=== PATIENT | male | born 1940 | race Hispanic/Latino ===

== ENCOUNTER → 2017-12-25 | Outpatient (CLI) | payer OTHER | END | disposition home or self-care (01) | LOC: OIH 10:57 | PROVIDERS: ATTEND Family Medicine | DX: M16.12 Unilateral primary osteoarthritis, left hip (principal) | CPT/HCPCS: 73502 ==

== ENCOUNTER 2018-12-24 05:47 | Day surgery (SDC) | payer OTHER ==
[~2018-12-24] VITALS: Ht 172.7 cm; Wt 69.8 kg
[~2018-12-24 05:47] MED LIST: APIX2.5T PO; ASPI-555 PO; ATOR-2 PO; LEVO50TA11 PO; METO-408 PO; OMEP20CA10 PO; SODIUM CHLORIDE 0.9% 1000ML 1,000 ML IV ONE; TAMS0.4C32 PO
[2018-12-24 06:35] VITALS: BP 116/54
[2018-12-24] MEDS ORDERED: LIDOCAINE HCL-MPF 2% 5ML VIAL ONE (07:36)
[2018-12-24] MEDS ORDERED: PROPOFOL 10 MG/ML 20ML VIAL IV ONE ×2 (07:36→07:57)
[2018-12-24] MEDS ORDERED: PHENYLEPHRINE HCL 10 MG/ML 1ML VIAL IV ONE (07:58)
[2018-12-24 08:06] VITALS: BP 95/47
[2018-12-24 08:11] VITALS: BP 112/55
[2018-12-24 08:16] VITALS: BP 109/53
[2018-12-24 08:38] VITALS: BP 135/61
--- NOTE | 2018-12-24 08:58 | NUR ---
PT TOLERATED PROCEDURE WELL, TO C/O OF PAIN , PT DOES STATE HE FEELS SLIGHT DIZZINESS, PT ABLE TO TOLERATE APPLE JUICE AND WATER. PT WAS ABLE TO MOVE FROM BED INTO CHAIR WITH SOME ASSISTANCE. PT ASSISTED TO DRESS UP , PT STABLE NO DISTRESS. POST CARE INSTRUCTIONS GIVEN TO PT AND , BOTH STATED UNDERSTANDING. PT INSTRUCTED TO START ELIQUIS TOMORROW. PT PLACED IN WHEELCHAIR, DRIVEN HOME BY .
== END 2018-12-24 08:58 | disposition home or self-care (01) ==
LOC: ENDO 05:47 → DAH 05:47 → ENDO 08:58
PROVIDERS: ATTEND Internal Medicine
DX: D12.3 Benign neoplasm of transverse colon (principal); D12.2 Benign neoplasm of ascending colon; K31.9 Disease of stomach and duodenum, unspecified; K29.50 Unspecified chronic gastritis without bleeding; K57.30 Diverticulosis of large intestine without perforation or abscess without bleeding; K64.0 First degree hemorrhoids; K22.8 Other specified diseases of esophagus; K31.89 Other diseases of stomach and duodenum; I10 Essential (primary) hypertension; Z86.73 Personal history of transient ischemic attack (TIA), and cerebral infarction without residual deficits; M19.90 Unspecified osteoarthritis, unspecified site; E11.9 Type 2 diabetes mellitus without complications; E78.00 Pure hypercholesterolemia, unspecified; I25.10 Atherosclerotic heart disease of native coronary artery without angina pectoris; Z95.0 Presence of cardiac pacemaker; Z98.890 Other specified postprocedural states; Z95.1 Presence of aortocoronary bypass graft; Z79.01 Long term (current) use of anticoagulants; Z79.899 Other long term (current) drug therapy
CPT/HCPCS: 43239; 45380; 45385; 82948 ×2; 88305; 93005; A4606; J2370; J2704 ×2; J3490; J7030

== ENCOUNTER → 2019-01-05 | Outpatient (CLI) | payer OTHER ==
[~2019-01-05] MED LIST changes: -SODIUM CHLORIDE 0.9% 1000ML 1,000 ML IV ONE
== END | disposition home or self-care (01) ==
LOC: OIH 09:58
PROVIDERS: ATTEND Family Medicine
DX: R63.4 Abnormal weight loss (principal); Z95.0 Presence of cardiac pacemaker
CPT/HCPCS: 71046

== ENCOUNTER → 2019-01-13 | Outpatient (CLI) | payer OTHER | END | disposition home or self-care (01) | LOC: RAH 10:00 | PROVIDERS: ATTEND Internal Medicine Gastroenterology | DX: R13.12 Dysphagia, oropharyngeal phase (principal); R63.3 Feeding difficulties; R63.4 Abnormal weight loss | CPT/HCPCS: 74230 ==

== ENCOUNTER → 2019-02-20 | Outpatient (CLI) | payer OTHER ==
[~2019-02-20] MED LIST changes: +IOHEXOL 350 MG/ML 100ML INFUS..BTL IV ONE
== END | disposition home or self-care (01) ==
LOC: RAH 09:23
PROVIDERS: ATTEND Internal Medicine Gastroenterology
DX: N28.1 Cyst of kidney, acquired (principal); I70.0 Atherosclerosis of aorta
CPT/HCPCS: 74178; Q9967

== ENCOUNTER → 2019-05-22 | Outpatient (CLI) | payer OTHER ==
[~2019-05-22] MED LIST changes: -IOHEXOL 350 MG/ML 100ML INFUS..BTL IV ONE; +OMEP-50 PO; -OMEP20CA10 PO
== END | disposition home or self-care (01) ==
LOC: SHCH 08:52
PROVIDERS: ATTEND Internal Medicine Cardiovascular Disease
DX: I08.3 Combined rheumatic disorders of mitral, aortic and tricuspid valves (principal); I11.9 Hypertensive heart disease without heart failure; I25.10 Atherosclerotic heart disease of native coronary artery without angina pectoris; Z95.0 Presence of cardiac pacemaker
CPT/HCPCS: 93306

== ENCOUNTER → 2019-06-17 | Outpatient (CLI) | payer OTHER ==
[~2019-06-17] MED LIST changes: +ALBUTEROL SULFATE 0.083% 2.5 MG/3 ML INH IH ONE
== END | disposition home or self-care (01) ==
LOC: RESP 08:19
PROVIDERS: ATTEND Internal Medicine Cardiovascular Disease
DX: J44.9 Chronic obstructive pulmonary disease, unspecified (principal); Z87.891 Personal history of nicotine dependence
CPT/HCPCS: 94060; 94727; 94729

== ENCOUNTER → 2020-01-13 | Outpatient (CLI) | payer OTHER ==
[~2020-01-13] MED LIST changes: -ALBUTEROL SULFATE 0.083% 2.5 MG/3 ML INH IH ONE; +FURO20TA4 PO; +GLIP5TAB11 PO; +METO25 PO; -OMEP-50 PO; +OMEP20CA12 PO
== END | disposition home or self-care (01) ==
LOC: OIH 12:50
PROVIDERS: ATTEND Family Medicine
DX: J90 Pleural effusion, not elsewhere classified (principal); J98.11 Atelectasis; M47.814 Spondylosis without myelopathy or radiculopathy, thoracic region; R04.2 Hemoptysis; Z95.0 Presence of cardiac pacemaker
CPT/HCPCS: 71046

== ENCOUNTER 2020-01-14 17:16 | Observation (INO) | payer OTHER ==
[~2020-01-14] VITALS: Ht 175.3 cm; Wt 74.2 kg
[~2020-01-14 17:16] MED LIST changes: -FURO20TA4 PO; -GLIP5TAB11 PO; -METO25 PO
[2020-01-14 17:49] LABS: BASOPHILS % (AUTO) 0.8 % (0.0-5.0); EOSINOPHILS % (AUTO) 1.3 % (0.0-8.0); HEMATOCRIT 30.6 % (42-54); LYMPHOCYTES % (AUTO) 27.5 % (21.0-51.0); MEAN CORPUSCULAR HEMOGLOBIN 30.1 pg (27.0-33.0); MEAN CORPUSCULAR VOLUME 91.3 fL (79-99); MONOCYTES % (AUTO) 12.4 % (3.0-13.0); NEUTROPHILS % (AUTO) 57.8 % (40.0-77.0); PLATELET COUNT (AUTO) 129 K/uL (130-400); RED BLOOD CELL COUNT(AUTO) 3.35 MIL/uL (4.50-6.20); RED CELL DISTRIBUTION WIDTH 13.9 % (11.0-15.5)
[2020-01-14] MEDS ORDERED: ASPIRIN 325 MG TABLET ONE (17:51)
[2020-01-14 17:56] LABS: INR 1.2 (0.85-1.15); PROTHROMBIN TIME 12.9 SEC (9.6-11.6)
[2020-01-14 18:03] LABS: CREATININE 1.6 mg/dL (0.5-1.5); POTASSIUM 3.9 mmol/L (3.5-5.1)
[2020-01-14 18:07] LABS: ALBUMIN 3.6 g/dL (3.5-5.0); BILIRUBIN,TOTAL 0.9 mg/dL (0.2-1.0); TOTAL PROTEIN, SERUM 7.5 g/dL (6.0-8.3)
[2020-01-14] MEDS ORDERED: SODIUM CHLORIDE 0.9% 1000ML 1,000 ML IV SCH (21:15)
[2020-01-14] MEDS ORDERED: PANTOPRAZOLE SODIUM 40 MG TABLET.DR ONE (21:26)
[2020-01-14 21:55] VITALS: BP 138/60
[2020-01-14] MEDS ORDERED: FURO20TA4 PO (22:42)
[2020-01-14] MEDS ORDERED: METO25 PO (22:47)
[2020-01-14] MEDS ORDERED: GLIP5TAB11 PO (22:48)
[2020-01-15] VITALS (11 sets, daily range): BP systolic 102–128; BP diastolic 53–74
[2020-01-15 04:01] LABS: HEMATOCRIT 28.4 % (42-54); MEAN CORPUSCULAR HEMOGLOBIN 29.6 pg (27.0-33.0); MEAN CORPUSCULAR HGB CONC 32.4 g/dL (32.0-36.0); MEAN CORPUSCULAR VOLUME 91.3 fL (79-99); PLATELET COUNT (AUTO) 105 K/uL (130-400); RED BLOOD CELL COUNT(AUTO) 3.11 MIL/uL (4.50-6.20); RED CELL DISTRIBUTION WIDTH 13.9 % (11.0-15.5); WHITE BLOOD COUNT (AUTO) 5.7 K/uL (4.8-10.8)
[2020-01-15 04:20] LABS: ALBUMIN 3.2 g/dL (3.5-5.0); CREATININE 1.5 mg/dL (0.5-1.5); TOTAL PROTEIN, SERUM 7.2 g/dL (6.0-8.3)
[2020-01-15] MEDS: PANTOPRAZOLE SODIUM 40 MG TABLET.DR PO SCH (09:00)
--- NOTE | 2020-01-15 11:52 | NUR ---
RD NOTIFICATION DX RIGHT PLEURAL EFFUSION. DIET: NPO AT THIS TIME. NO SIGNIFICANT WEIGHT CHANGES NOTED. LABS AND MEDS REVIEWED. SKIN IS INTACT. PT REPORTS DRINKING ENSURE WHEN HIS APPETITE IS POOR. BMI IS 24.[address] RECOMMENDS TO ADVANCE DIET TOLERATED WHEN MEDICALLY FEASIBLE TO HEART HEALTHY OFFER ENSURE WITH MEALS NEEDED MONITOR TOLERANCE TO PO AND PO INTAKE RD WILL CONTINUE TO MONITOR AND FOLLOW UP, THANK YOU. Addendum: 01/15/20 at [address] Amended: Links added.
--- NOTE | 2020-01-15 13:40 | NUR ---
U/S GUIDED RIGHT THORACENTESIS PROCEDURE PERFORMED BY DR. BROWNLEE. PUNCTURE SITE RIGHT POSTERIOR LATERAL BACK AND PATIENT TOLERATED PROCEDURE WELL. TOTAL REMOVED 1.5 LITERS OF CLOUDY PINK TINGED PLEURAL FLUID. END OF PROCEDURE AT 1350. CATHETER REMOVED AND DRESSING APPLIED. NO BLEEDING NOTED. POST CHEST X-RAY DONE AND READ BY DR. BROWNLEE. NO PNEUMOTHORAX SEEN. CALLED REPORT TO AMY ARMSTRONG. PATIENT TRANSPORTED TO 4TH FLOOR RM 405 VIA BED AT 1430. PT STABLE, AAO X3 WITH NO C/O PAIN.
[2020-01-15 16:14] LABS: APPEARANCE BODY FLUID CLOUDY (CLEAR); SPECIMENTYPE,BODY FLUID PLEURAL
[2020-01-15 16:15] LABS: COLOR,BODY FLUID AMBER (LT YELLOW)
[2020-01-15 16:16] LABS: BODY FLUID WBC 158 /cu. mm.; TOTAL VOLUME,BODY FLUID 1500 mL
[2020-01-15 16:22] LABS: BODY FLUID RBC 4100 /cu. mm.
[2020-01-15 17:00] LABS: BF LYMPHOCYTE 60 %; BF MESOTHELIAL 19 %; BF MONOCYTE 5 %
[2020-01-15] MEDS ORDERED: IPRATROPIUM/ALBUTEROL SULFATE 3 ML SOLUTION IH PRN (17:30)
--- NOTE | 2020-01-15 18:54 | NUR ---
INITIAL CM MET Mello SHIRLEY FOR DC PLANNING.,LIVES W SPOUSE IS AMBULATORY HAS A NEUBALIZER AND A WALKER THAT HE SUES SOMETIMES , DRIVES HAS PROVIDER THROUGHT HE VA BUT WAS A BIT UNCLEAR TO HOURS AND FRQUENCY. DCP IS HOME OR [facility] WILL PROVIDE TRANSPORT S/P THORA AND STILL SHORT OF BREATH Addendum: 01/15/20 at 1859 by KAVITHA ESPARZA RN CM Amended: Links added.
[2020-01-15] MEDS: METOPROLOL TARTRATE 25 MG TAB PO SCH (20:31)
[2020-01-15] MEDS ORDERED: TAMSULOSIN HCL 0.4 MG CAP.ER.24H PO SCH (21:00)
[2020-01-15] MEDS ORDERED: ATORVASTATIN CALCIUM 40 MG TABLET PO SCH (21:00)
[2020-01-16 04:00] VITALS: BP 106/61
[2020-01-16] MEDS ORDERED: GLIPIZIDE 5 MG TABLET PO SCH (08:00)
[2020-01-16 08:34] VITALS: BP 130/63
[2020-01-16] MEDS ORDERED: LEVOTHYROXINE 50 MCG TABLET PO SCH (09:00)
[2020-01-16] MEDS ORDERED: ASPIRIN 81 MG EC TAB PO SCH (09:00)
[2020-01-16] MEDS ORDERED: FUROSEMIDE 20 MG TABLET PO SCH (09:00)
[2020-01-16] MEDS: PANTOPRAZOLE SODIUM 40 MG TABLET.DR PO SCH (09:48)
[2020-01-16] MEDS: METOPROLOL TARTRATE 25 MG TAB PO SCH (09:49)
[2020-01-16 11:39] VITALS: BP 128/56
[2020-01-16 16:36] VITALS: BP 126/89
--- NOTE | 2020-01-16 18:00 | NUR ---
DISCHARGE PATIENT GIVEN DISCHARGE INSTRUCTIONS AND EDUCATION ON FOLLOW UP APPOINTMENTS WITH DR DELEON AND NEW SCHEDULED MEDICATION. PATIENT VERBALIZED UNDERSTANDING OF ALL EDUCATION GIVEN VIA TEACH BACK. NO CONCERNS VOICED. IV DISCONTINUED, CATHETER INTACT. NO DISTRESS NOTED UPON DISCHARGE. ALL BELONGINGS TAKEN WITH. PATIENT LEFT VIA WHEELCHAIR WEARING A SURGICAL MASK. SUE JESUS DAUGHTER, GIVEN DISCHARGE INSTRUCTIONS WELL. SUE VERBALIZED UNDERSTANDING OF ALL EDUCATION GIVEN VIA TEACH BACK. NO CONCERNS VOICED.
[2020-01-17] MEDS ORDERED: LEVOTHYROXINE 50 MCG TABLET PO SCH (06:30)
== END 2020-01-16 18:26 | disposition home or self-care (01) ==
LOC: EDH 17:16 → EDHIP 20:50 → 4BH 21:52
PROVIDERS: ADMIT Family Medicine; ATTEND Family Medicine
DX: J90 Pleural effusion, not elsewhere classified (principal); R04.2 Hemoptysis; E11.9 Type 2 diabetes mellitus without complications; E78.5 Hyperlipidemia, unspecified; I25.10 Atherosclerotic heart disease of native coronary artery without angina pectoris; I10 Essential (primary) hypertension; Z87.891 Personal history of nicotine dependence; Z95.0 Presence of cardiac pacemaker; Z95.1 Presence of aortocoronary bypass graft
CPT/HCPCS: 32555; 36415 ×2; 71045 ×3; 71250; 80053 ×2; 82550; 82948 ×6; 83615 ×2; 84155; 84157; 84484; 85025; 85027; 85610; 85730; 87071; 87205; 89051; 93005; 93306; 93356; 94640; 94664; 99285; A4215; G0378 ×6; J7030

== ENCOUNTER → 2020-02-05 | Outpatient (CLI) | payer OTHER ==
[~2020-02-05] MED LIST changes: +FURO20TA4 PO; +GLIP5TAB11 PO; -METO-408 PO; +METO25 PO; -OMEP20CA12 PO
== END ==
LOC: SHCH 09:37
PROVIDERS: ATTEND Internal Medicine Cardiovascular Disease
DX: T82.223A Leakage of biological heart valve graft, initial encounter (principal); I36.1 Nonrheumatic tricuspid (valve) insufficiency; I50.9 Heart failure, unspecified; Z98.890 Other specified postprocedural states; X58.XXXA Exposure to other specified factors, initial encounter
CPT/HCPCS: 93306

== ENCOUNTER → 2020-03-03 | Outpatient (CLI) | payer OTHER ==
[~2020-03-03] MED LIST changes: +ASCO500C18 PO; -ASPI-555 PO; +ASPI-556 PO; +BUME1TAB7 PO; +CHOL100046 PO; +CLOP75TA32 PO; +DEXA1TAB PO; +LOSA50TA64 PO; +METO-408 PO; +METO5TAB7 PO; +PANT40TA54 PO; +REGADENOSON 0.4 MG/5 ML PF SYG IVP SCH; +TORS10TA18 PO
== END | disposition home or self-care (01) ==
LOC: SHCH 08:20
PROVIDERS: ATTEND Internal Medicine Cardiovascular Disease
DX: I25.89 Other forms of chronic ischemic heart disease (principal); I50.20 Unspecified systolic (congestive) heart failure
CPT/HCPCS: 78452; 93017; 96374; A9500 ×2; J2785

== ENCOUNTER → 2020-03-09 | Outpatient (CLI) | payer OTHER ==
[~2020-03-09] MED LIST changes: -ASCO500C18 PO; +ASPI-555 PO; -ASPI-556 PO; -BUME1TAB7 PO; -CHOL100046 PO; -CLOP75TA32 PO; -DEXA1TAB PO; -LOSA50TA64 PO; -METO-408 PO; -METO5TAB7 PO; -PANT40TA54 PO; -REGADENOSON 0.4 MG/5 ML PF SYG IVP SCH; -TORS10TA18 PO
== END | disposition home or self-care (01) ==
LOC: OIH 10:15
PROVIDERS: ATTEND Internal Medicine
DX: J90 Pleural effusion, not elsewhere classified (principal); J44.9 Chronic obstructive pulmonary disease, unspecified; I50.9 Heart failure, unspecified; Z95.1 Presence of aortocoronary bypass graft
CPT/HCPCS: 71046

== ENCOUNTER → 2020-04-14 | Outpatient (CLI) | payer OTHER | END | disposition home or self-care (01) | LOC: OIH 09:12 | PROVIDERS: ATTEND Internal Medicine | DX: J90 Pleural effusion, not elsewhere classified (principal); I70.0 Atherosclerosis of aorta; R60.0 Localized edema ==

== ENCOUNTER 2020-04-20 11:54 | Inpatient (IN) | payer OTHER ==
[~2020-04-20] VITALS: Ht 175.3 cm; Wt 63.6 kg
[2020-04-20] MEDS ORDERED: OSELTAMIVIR PHOSPHATE 75 MG CAP ONE (14:23)
[2020-04-20] MEDS ORDERED: AZITHROMYCIN 250 MG TABLET PO ONE (14:23)
[2020-04-20] MEDS ORDERED: ONDANSETRON HCL 4 MG/2 ML VIAL IVP PRN (15:00)
[2020-04-20] MEDS ORDERED: HYDRALAZINE HCL 20 MG/ML VIAL IV PRN (15:00)
[2020-04-20] MEDS ORDERED: LABETALOL 20 MG/4 ML DISP.SYRIN IV PRN (15:00)
[2020-04-20] MEDS ORDERED: IPRATROPIUM/ALBUTEROL SULFATE 3 ML SOLUTION IH PRN (15:00)
[2020-04-20] MEDS ORDERED: ZOLPIDEM TARTRATE 5 MG TAB PO PRN (15:00)
[2020-04-20] MEDS ORDERED: LACTULOSE 20 GM/30 ML UDCUP PO PRN (15:00)
[2020-04-20] MEDS ORDERED: LOPERAMIDE HCL 2 MG CAP PO PRN (15:00)
[2020-04-20] MEDS ORDERED: LOPERAMIDE 1 MG/7.5 ML UDCUP PO PRN (15:00)
[2020-04-20] MEDS ORDERED: COMPOUND PO MISCELLANEOUS 1 EACH MISC MISC PRN (15:15)
[2020-04-20] MEDS ORDERED: LOPERAMIDE HCL 2 MG CAP PO ONE (20:58)
[2020-04-20] MEDS ORDERED: FAMOTIDINE/PF 20 MG/2 ML VIAL IV ONE (20:59)
[2020-04-20] MEDS ORDERED: OSELTAMIVIR PHOSPHATE 75 MG CAP PO SCH (21:00)
[2020-04-21] MEDS ORDERED: AZITHROMYCIN 500MG+NS 250ML 250 ML IV SCH (07:15)
[2020-04-21 08:05] VITALS: PULSE 59; RESP 24
[2020-04-21] MEDS ORDERED: ENOXAPARIN SODIUM 60 MG/0.6 ML SQ SCH (09:00)
[2020-04-21] MEDS ORDERED: FUROSEMIDE 10 MG/ML 4ML VIAL IV SCH (09:00)
[2020-04-21] MEDS ORDERED: ASPIRIN 81MG TAB.CHEW ONE (09:01)
[2020-04-21] MEDS ORDERED: ENOXAPARIN SODIUM 60 MG/0.6 ML SQ ONE (09:01)
[2020-04-21] MEDS ORDERED: FUROSEMIDE 10 MG/ML 2ML VIAL ONE (09:01)
[2020-04-21] MEDS ORDERED: OSELTAMIVIR PHOSPHATE 75 MG CAP ONE ×2 (09:02→20:24)
[2020-04-21] MEDS ORDERED: AZITHROMYCIN 500MG+NS 250ML 250 ML IV ONE (09:04)
[2020-04-21] MEDS ORDERED: POTASSIUM CHLORIDE 20 MEQ ERTAB PO ONE (10:08)
[2020-04-21] MEDS ORDERED: POTASSIUM CHLORIDE 20MEQ/100ML 100 ML IV PRN (10:15)
[2020-04-21] MEDS ORDERED: LIDOCAINE HCL-MPF 1% 2ML VIAL IV PRN (10:15)
[2020-04-21] MEDS ORDERED: POTASSIUM CHLORIDE 10% ELIXIR 20 MEQ/15 ML UDCUP PO PRN (10:15)
--- NOTE | 2020-04-21 15:52 | NUR ---
DCP: SNF at [facility] [address] [place] pt's daughter /JACOB Sr [phone]. Per daughter pt lives with his and son (alcoholic). currently admitted at [facility], for fall with concussion. Pt was seen by at [facility] and tested for covid, results pending. MD recommending SNF and at that time pt was agreeable. Daughter states pt is his own decision maker and may not agree when we ask him. Pt has cane, walker, shower chair ,O2 concentrator, needing portable tanks.No care or provider. Daughter gave her verbal consent for referral to be sent to [facility], but we will ask pt when he gets up to floor. CM to follow up with pt Addendum: 04/21/20 at 1557 by SERENE ESTRELLA Amended: Links added.
[2020-04-21] MEDS ORDERED: ACETAMINOPHEN 325 MG TAB ONE (20:23)
[2020-04-21] MEDS ORDERED: ZOLPIDEM TARTRATE 5 MG TAB ONE (20:25)
[2020-04-22] MEDS ORDERED: ACETAMINOPHEN 325 MG TAB PO PRN (01:15)
--- NOTE | 2020-04-22 07:41 | NUR ---
Pt. still in ER 04/20, 04/21, 04/22/2020. Awaiting for patient to be transferred to regular medical floor in order to be able to initiate skilled Physical Therapy evaluation [facility] Addendum: 04/22/20 at 0743 by LOYD MORRIS PT PT Amended: Links added.
[2020-04-22] MEDS ORDERED: OSELTAMIVIR PHOSPHATE 75 MG CAP ONE ×2 (08:41→20:05)
[2020-04-22] MEDS ORDERED: ASPIRIN 81MG TAB.CHEW ONE (08:42)
[2020-04-22] MEDS ORDERED: AZITHROMYCIN 500MG+NS 250ML 250 ML IV ONE (08:42)
[2020-04-22] MEDS ORDERED: FUROSEMIDE 10 MG/ML 4ML VIAL ONE (08:42)
[2020-04-22] MEDS ORDERED: ENOXAPARIN SODIUM 40 MG/0.4 ML SYRINGE SQ ONE (08:42)
[2020-04-22] MEDS ORDERED: PANTOPRAZOLE SODIUM 40 MG TABLET.DR ONE (08:43)
--- NOTE | 2020-04-22 08:52 | NUR ---
RE: RIGHT THORACENTESIS PATIENT SCHEDULED FOR RT THORACENTESIS DR Alan MENDOZA NOTIFIED. AND REVIEWED IMAGES. PATIENT SUSPECT WITH COVID-19 WITH RADIOLOGIC FINDINGS SUGGESTING COVID-19. PENDING COVID-19 TEST RESULTS. PROCEDURE CANCELED BY DR Alan MENDOZA AND RECOMMENDS PROCEDURE TO BE DONE BY COVID TEAM OR OFFSET MACHINE OPERATOR. AMY LANE NOTIFIED.
[2020-04-22] MEDS ORDERED: ZOLPIDEM TARTRATE 5 MG TAB ONE (20:05)
[2020-04-23] MEDS: PANTOPRAZOLE SODIUM 40 MG TABLET.DR PO SCH (09:00)
[2020-04-23] MEDS: ASPIRIN 81MG TAB.CHEW PO SCH (09:00)
[2020-04-23] MEDS: OSELTAMIVIR SUSP 15 MG/ML (6 CAPS/29ML) PO SCH ×2 (09:00→21:00)
[2020-04-23] MEDS ORDERED: FUROSEMIDE 10 MG/ML 4ML VIAL ONE (10:26)
[2020-04-23] MEDS ORDERED: ASPIRIN 81MG TAB.CHEW ONE (10:26)
[2020-04-23] MEDS ORDERED: ENOXAPARIN SODIUM 60 MG/0.6 ML SQ ONE (10:26)
[2020-04-23] MEDS ORDERED: OSELTAMIVIR PHOSPHATE 75 MG CAP ONE (10:27)
[2020-04-23] MEDS ORDERED: PANTOPRAZOLE SODIUM 40 MG TABLET.DR ONE (10:27)
[2020-04-23] MEDS ORDERED: AZITHROMYCIN 500MG+NS 250ML 250 ML IV ONE (11:01)
[2020-04-23] MEDS ORDERED: ENOXAPARIN SODIUM 80 MG/0.8 ML SQ SCH (14:15)
[2020-04-23 14:41] VITALS: BP 120/58; PULSE 83; RESP 20; TEMP 98
[2020-04-23 16:23] VITALS: BP 110/51; PULSE 64; RESP 16; TEMP 97.4
[2020-04-23] MEDS: CEFEPIME HCL 2 GM VIAL IVP SCH ×2 (17:56→20:51)
[2020-04-23] MEDS: FUROSEMIDE 10 MG/ML 4ML VIAL IV SCH ×2 (17:56→19:43)
[2020-04-23 19:32] VITALS: BP 114/53; PULSE 83; RESP 18; TEMP 97.4
[2020-04-23] MEDS: DOXYCYCLINE HYCLATE 100 MG TABLET PO SCH (19:44)
[2020-04-23] MEDS: POTASSIUM CHLORIDE 20 MEQ ERTAB PO PRN ×2 (19:46→22:31)
[2020-04-23] MEDS ORDERED: FUROSEMIDE 10 MG/ML 4ML VIAL IV SCH (21:00)
[2020-04-23] MEDS: PNEUMOCOCCAL VACCINE POLYVALENT 0.5 ML/VIAL [PPV] IM SCH (21:42)
[2020-04-23 23:58] VITALS: BP 103/49; PULSE 60; RESP 18; TEMP 96.2
[2020-04-24] MEDS: FUROSEMIDE 10 MG/ML 4ML VIAL IV SCH ×4 (02:29→20:34)
[2020-04-24 04:20] VITALS: BP 112/57; PULSE 60; TEMP 96.8
[2020-04-24] MEDS: CEFEPIME HCL 2 GM VIAL IVP SCH ×3 (05:22→20:35)
[2020-04-24 07:00] VITALS: BP 117/59; PULSE 86; RESP 32; TEMP 97
[2020-04-24] MEDS: DOXYCYCLINE HYCLATE 100 MG TABLET PO SCH ×2 (08:28→20:35)
[2020-04-24] MEDS: PANTOPRAZOLE SODIUM 40 MG TABLET.DR PO SCH (08:28)
[2020-04-24] MEDS: ASPIRIN 81MG TAB.CHEW PO SCH (08:28)
[2020-04-24] MEDS: POTASSIUM CHLORIDE 20 MEQ ERTAB PO PRN ×3 (08:29→17:03)
[2020-04-24] MEDS: OSELTAMIVIR SUSP 15 MG/ML (6 CAPS/29ML) PO SCH ×2 (08:29→20:35)
[2020-04-24 11:00] VITALS: BP 105/49; PULSE 61; RESP 28; TEMP 97
--- NOTE | 2020-04-24 12:53 | NUR ---
HELD TREATMENT FOR REGULAR PT ON SATURDAY. Addendum: 04/24/20 at 1253 by LOREE CHAVEZ, PT PT Amended: Links added.
[2020-04-24] MEDS: ENOXAPARIN SODIUM 60 MG/0.6 ML SQ SCH (14:23)
[2020-04-24 16:00] VITALS: BP 112/59; PULSE 64; RESP 28; TEMP 96
[2020-04-24 19:50] VITALS: BP 95/49; PULSE 57; RESP 18; TEMP 96.7
[2020-04-24] MEDS: ATORVASTATIN CALCIUM 40 MG TABLET PO SCH (20:35)
[2020-04-24] MEDS: METOPROLOL TARTRATE 25 MG TAB PO SCH (20:35)
[2020-04-24] MEDS: TAMSULOSIN HCL 0.4 MG CAP.ER.24H PO SCH (20:35)
[2020-04-24] MEDS: PNEUMOCOCCAL VACCINE POLYVALENT 0.5 ML/VIAL [PPV] IM SCH (21:00)
[2020-04-25] VITALS (8 sets, daily range): BP systolic 92–118; BP diastolic 45–60; PULSE 56–73; RESP 18–22; TEMP 95.5–98.2
--- NOTE | 2020-04-25 00:15 | NUR ---
STATUS Pt wants to get up to the bathroom,as per Star Mujica,pt c/o he felt dizzy.Explained to pt he's not allowed to get out of bed if he feels dizzy and weak.Pt offerred bedpan.He gets sob with exertion,placed back on 02 at 2lpm via Nc as he had removed it a while ago.Side rails up x 4,bed alarm on.Encouraged to call for assistance.
--- NOTE | 2020-04-25 01:15 | NUR ---
STATUS Pt resting quietly in bed,eyes closed.Respirations even and unlabored.
[2020-04-25] MEDS: FUROSEMIDE 10 MG/ML 4ML VIAL IV SCH ×4 (02:32→20:50)
[2020-04-25] MEDS: CEFEPIME HCL 2 GM VIAL IVP SCH ×3 (05:00→20:41)
[2020-04-25] MEDS: LEVOTHYROXINE 50 MCG TABLET PO SCH (05:58)
[2020-04-25] MEDS: POTASSIUM CHLORIDE 20 MEQ ERTAB PO PRN (06:17)
[2020-04-25] MEDS: GLIPIZIDE 5 MG TABLET PO SCH (08:00)
[2020-04-25] MEDS: LOSARTAN 50 MG TABLET PO SCH (09:00)
[2020-04-25] MEDS: METOPROLOL TARTRATE 25 MG TAB PO SCH ×2 (09:00→20:40)
[2020-04-25] MEDS: **HM**(Cholecalciferol (Vitamin D3) (Vitamin D3) 25 MCG PO SCH (09:00)
[2020-04-25] MEDS: PANTOPRAZOLE SODIUM 40 MG TABLET.DR PO SCH (09:19)
[2020-04-25] MEDS: DOXYCYCLINE HYCLATE 100 MG TABLET PO SCH ×2 (09:19→20:40)
[2020-04-25] MEDS: CLOPIDOGREL BISULFATE 75 MG TAB PO SCH (09:19)
[2020-04-25] MEDS: ASPIRIN 81MG TAB.CHEW PO SCH (09:20)
[2020-04-25] MEDS: OSELTAMIVIR SUSP 15 MG/ML (6 CAPS/29ML) PO SCH ×2 (09:23→20:55)
[2020-04-25] MEDS: ENOXAPARIN SODIUM 60 MG/0.6 ML SQ SCH (13:32)
--- NOTE | 2020-04-25 14:49 | NUR ---
RD NOTIFICATION Pt admitted with positive Influenza B. Pt with recent weight loss. Low BMI for age. +s/s Moderate fat/muscle loss. Tolerating Renal Dialysis diet order with no report of GI distress. Poor PO intake, decreased appetite. Recommend resume diet order Recommend Nepro BID RD to continue to monitor. Please notify as additional nutrition concerns arise. Thank you. Addendum: 04/25/20 at [address] Amended: Links added.
--- NOTE | 2020-04-25 15:03 | NUR ---
[facility] CONSULT [facility] RECOMMENDATIONS SUBMITTED BASED ON REPORT BY PATIENT'S NURSE DUE TO COVID-19 PROTOCOL; PICTURES NOT AVAILABLE IN CHART. Addendum: 04/25/20 at 1504 by ZEYAD ONEILL LVN LVN W Amended: Links added.
[2020-04-25] MEDS ORDERED: LORAZEPAM 2 MG/ML 1 ML VIAL ONE (17:28)
[2020-04-25] MEDS ORDERED: TRAMADOL HCL 50 MG TABLET PO SCH ×2 (17:45)
[2020-04-25] MEDS ORDERED: LORAZEPAM 2 MG/ML 1 ML VIAL IM PRN (17:45)
[2020-04-25] MEDS ORDERED: LORAZEPAM 2 MG/ML 1 ML VIAL IM SCH (17:45)
[2020-04-25] MEDS ORDERED: LORAZEPAM 2 MG/ML 1 ML VIAL IM ONE (17:45)
[2020-04-25] MEDS ORDERED: HYDROMORPHONE HCL 0.5 MG/0.5 ML ML IVP PRN (17:45)
--- NOTE | 2020-04-25 17:45 | NUR ---
AGITATION DREW EMBRYOLOGY PROFESSOR NOTIFIED OF PATIENTS AGITATION, PATIENT TRYING TO GET OUT OF BED AND SCREAMING AT STAFF. PATIENT STATES HE IS IN PAIN. EMBRYOLOGY PROFESSOR GAVE ORDERS FOR ABGs, ATIVAN AND PAIN MEDICATION AND 1:1 SITTER. ORDERS ENTERED INTO SYSTEM. ATIVAN 1MG GIVEN TO PATIENT.
[2020-04-25] MEDS ORDERED: TRAMADOL HCL 50 MG TABLET PO PRN ×2 (19:15)
[2020-04-25] MEDS: ATORVASTATIN CALCIUM 40 MG TABLET PO SCH (20:40)
[2020-04-25] MEDS: TAMSULOSIN HCL 0.4 MG CAP.ER.24H PO SCH (20:40)
[2020-04-25] MEDS: PNEUMOCOCCAL VACCINE POLYVALENT 0.5 ML/VIAL [PPV] IM SCH (21:00)
[2020-04-26] VITALS (9 sets, daily range): BP systolic 97–116; BP diastolic 51–60; PULSE 60–79; RESP 18–22; TEMP 97.5–98.3
[2020-04-26] MEDS: FUROSEMIDE 10 MG/ML 4ML VIAL IV SCH ×4 (03:11→20:24)
[2020-04-26] MEDS: LEVOTHYROXINE 50 MCG TABLET PO SCH (05:41)
[2020-04-26] MEDS: CEFEPIME HCL 2 GM VIAL IVP SCH ×3 (05:41→23:07)
[2020-04-26] MEDS: GLIPIZIDE 5 MG TABLET PO SCH (08:00)
[2020-04-26] MEDS: CLOPIDOGREL BISULFATE 75 MG TAB PO SCH ×2 (08:16→09:00)
[2020-04-26] MEDS: PANTOPRAZOLE SODIUM 40 MG TABLET.DR PO SCH ×2 (08:16→09:00)
[2020-04-26] MEDS: ASPIRIN 81MG TAB.CHEW PO SCH ×2 (08:16→09:00)
[2020-04-26] MEDS: OSELTAMIVIR SUSP 15 MG/ML (6 CAPS/29ML) PO SCH ×3 (08:16→20:23)
[2020-04-26] MEDS: DOXYCYCLINE HYCLATE 100 MG TABLET PO SCH ×2 (08:16→09:00)
[2020-04-26] MEDS: **HM**(Cholecalciferol (Vitamin D3) (Vitamin D3) 25 MCG PO SCH (08:17)
[2020-04-26] MEDS: LOSARTAN 50 MG TABLET PO SCH (08:19)
[2020-04-26] MEDS: METOPROLOL TARTRATE 25 MG TAB PO SCH ×2 (08:19→20:24)
--- NOTE | 2020-04-26 09:00 | NUR ---
STATUS PATIENT CURRENTLY SLEEPING. LAST DOSE OF ATIVAN WAS GIVEN AT 033. PATIENT IS AROUSABLE, BUT REFUSING TO COOPERATE TO TAKE MORNING MEDS AT THIS TIME. BP 116/43, OXYGEN SATURATIONS ON ROOM AIR 98%. WILL TRY AGAIN LATER TO GIVE MORNING MEDICATIONS.
--- NOTE | 2020-04-26 09:46 | NUR ---
RD UPDATE Notification for nutrition supplementation received. Diet order updated to add Nepro TID. RD to continue to monitor. Please notify as additional nutrition concerns arise. Thank you.
--- NOTE | 2020-04-26 11:15 | NUR ---
STATUS PATIENT AGAIN REFUSED TO TAKE MEDICATIONS. HE IS STILL VERY LETHARGIC, BUT AROUSABLE. ABLE TO VERBALIZE THAT HE DOES NOT WANT TO TAKE HIS MEDICATIONS. PRIMARY TEAM HAS NOT BEEN NOTIFIED THEY HAVE NOT ROUNDED YET. PATIENT'S VITAL SIGNS REMAIN STABLE, BP AND O2 SATURATIONS ON ROOM AIR ARE ACCEPTABLE.
--- NOTE | 2020-04-26 14:00 | NUR ---
STATUS PATIENT ASSESSED AGAIN. PATIENT IS REFUSING TO TAKE MEDICATIONS. HE IS ALERT AT THIS TIME, BUT CONTINUES TO REFUSE MEDICATIONS. DR. LUU MADE AWARE, HE STATED HE WILL BE HERE TO MAKE ROUNDS SHORTLY.
[2020-04-26] MEDS: ENOXAPARIN SODIUM 60 MG/0.6 ML SQ SCH (14:14)
--- NOTE | 2020-04-26 18:20 | NUR ---
MD ROUNDS DR. LUU AT BEDSIDE TO ASSESS PATIENT. HE STATES LETHARGY IS FROM ATIVAN AND HE WILL DISCONTINUE IT. HE WAS ALSO MADE AWARE THAT PATIENT DID NOT TAKE ANY OF HIS PILLS, HE REFUSED THEM. HE SAID HE WILL TRY TO SWITCH MANY MEDS TO IV HE CAN.
[2020-04-26] MEDS ORDERED: HALOPERIDOL LACTATE 5 MG/ML VIAL IM PRN (19:00)
[2020-04-26] MEDS: ATORVASTATIN CALCIUM 40 MG TABLET PO SCH (20:23)
[2020-04-26] MEDS: TAMSULOSIN HCL 0.4 MG CAP.ER.24H PO SCH (20:23)
[2020-04-27 04:05] VITALS: BP 83/57; PULSE 66; RESP 18; TEMP 97.6
[2020-04-27] MEDS: LEVOTHYROXINE 50 MCG TABLET PO SCH (06:10)
[2020-04-27] MEDS: FUROSEMIDE 10 MG/ML 4ML VIAL IV SCH ×2 (06:11→19:53)
[2020-04-27] MEDS: CEFEPIME HCL 2 GM VIAL IVP SCH ×2 (06:11→19:59)
[2020-04-27 07:44] VITALS: PULSE 66; RESP 18
[2020-04-27 08:42] VITALS: BP 109/60; PULSE 64; RESP 18; TEMP 97.6
[2020-04-27] MEDS: LOSARTAN 50 MG TABLET PO SCH (09:00)
[2020-04-27] MEDS: METOPROLOL TARTRATE 25 MG TAB PO SCH ×2 (09:00→19:53)
[2020-04-27] MEDS: **HM**(Cholecalciferol (Vitamin D3) (Vitamin D3) 25 MCG PO SCH (09:00)
[2020-04-27] MEDS: ASPIRIN 81MG TAB.CHEW PO SCH (09:01)
[2020-04-27] MEDS: PANTOPRAZOLE SODIUM 40 MG TABLET.DR PO SCH (09:01)
[2020-04-27] MEDS: OSELTAMIVIR SUSP 15 MG/ML (6 CAPS/29ML) PO SCH (09:02)
[2020-04-27] MEDS: CLOPIDOGREL BISULFATE 75 MG TAB PO SCH (09:02)
--- NOTE | 2020-04-27 12:00 | NUR ---
BENCHMARK ROUNDS SKY WAN SUPPORT SPECIALIST AT BEDSIDE FOR AN UPDATE ON PATIENT CONDITION. NOTIFIED HER THAT PATIENT CONTINUES TO BE CONFUSED/LETHARGIC/UNCOOPERATIVE AT TIMES. SHE WAS ALSO MADE AWARE THAT PATIENT HAS HAD POOR ORAL INTAKE AND IS REFUSING TO EAT. VITAL SIGNS AND OXYGENATION HAVE REMAINED STABLE. SHE GAVE ORDERS FOR MARINOL 2.5MG PO BID. ORDERS ENTERED INTO SYSTEM.
[2020-04-27 12:30] VITALS: BP 107/54; PULSE 61; RESP 18; TEMP 97.9
[2020-04-27] MEDS: COMPOUNDING VEHICLE NO 8 PO SCH ×2 (12:34→19:58)
[2020-04-27] MEDS: OSELTAMIVIR PHOSPHATE PO SCH ×2 (12:34→19:58)
[2020-04-27] MEDS: [UNRECOGNIZED DRUG - OTHER] PO SCH ×2 (12:34→19:58)
[2020-04-27 16:44] VITALS: BP 115/42; PULSE 60; RESP 18; TEMP 97.6
--- NOTE | 2020-04-27 18:03 | NUR ---
REFUSING TO EAT TRIED HELPING PATIENT EAT AT THIS TIME, BUT PATIENT REFUSED. PROCESSES CHEMICAL DESIGN ENGINEER AWARE.
--- NOTE | 2020-04-27 18:15 | NUR ---
FAMILY UPDATE PATIENT'S DAUGHTER, SUE, UPDATED ON PATIENT STATUS. SHE WAS NOTIFIED THAT PATIENT HAS BEEN REFUSING TO EAT. SHE WAS MADE AWARE THAT APPETITE STIMULATORS WERE ORDERED, BUT IF HE DOES NOT PROGRESS HE WILL MORE THAN LIKELY NEED SUPPLEMENTAL NUTRITION VIA FEEDING TUBE. SHE VERBALIZED UNDERSTANDING.
[2020-04-27] MEDS: ENOXAPARIN SODIUM 60 MG/0.6 ML SQ SCH (19:52)
[2020-04-27] MEDS: TAMSULOSIN HCL 0.4 MG CAP.ER.24H PO SCH (19:53)
[2020-04-27] MEDS: ATORVASTATIN CALCIUM 40 MG TABLET PO SCH (19:53)
[2020-04-27 20:00] VITALS: BP 112/65; PULSE 78; RESP 18; TEMP 97.8
[2020-04-27] MEDS ORDERED: DRONABINOL 2.5 MG CAP PO ONE (21:00)
[2020-04-28] VITALS: BP 103/56; PULSE 73; RESP 18; TEMP 97.4
[2020-04-28 03:53] VITALS: BP 105/59; PULSE 90; RESP 18; TEMP 97.6
[2020-04-28] MEDS: LEVOTHYROXINE 50 MCG TABLET PO SCH (05:55)
[2020-04-28] MEDS: CEFEPIME HCL 2 GM VIAL IVP SCH ×2 (06:00→14:37)
[2020-04-28] MEDS: FUROSEMIDE 10 MG/ML 4ML VIAL IV SCH (07:00)
[2020-04-28 08:37] VITALS: BP 101/58; PULSE 68; RESP 18; TEMP 97.2
[2020-04-28] MEDS: [UNRECOGNIZED DRUG - OTHER] PO SCH ×2 (09:00→21:00)
[2020-04-28] MEDS: COMPOUNDING VEHICLE NO 8 PO SCH ×2 (09:00→21:00)
[2020-04-28] MEDS: OSELTAMIVIR PHOSPHATE PO SCH ×2 (09:00→21:00)
[2020-04-28] MEDS: LOSARTAN 50 MG TABLET PO SCH (09:00)
[2020-04-28] MEDS: **HM**(Cholecalciferol (Vitamin D3) (Vitamin D3) 25 MCG PO SCH (09:00)
[2020-04-28] MEDS: METOPROLOL TARTRATE 25 MG TAB PO SCH (10:46)
[2020-04-28] MEDS: CLOPIDOGREL BISULFATE 75 MG TAB PO SCH (10:46)
[2020-04-28] MEDS: ASPIRIN 81MG TAB.CHEW PO SCH (10:46)
[2020-04-28] MEDS: PANTOPRAZOLE SODIUM 40 MG TABLET.DR PO SCH (10:47)
[2020-04-28 12:50] VITALS: BP 112/62; PULSE 72; RESP 18; TEMP 97.8
[2020-04-28] MEDS: ENOXAPARIN SODIUM 60 MG/0.6 ML SQ SCH (12:59)
--- NOTE | 2020-04-28 16:04 | NUR ---
DC PLAN CALLED DAUGHTER ZAYNAB PAYNE. WENT OVER THE DIFFERENT DC PLANS. DID BRING UP PEG TUBE MIGHT BE NEEDED IF PATIENT CONTINUES TO REFUSE TO EAT AND NG TUBE PLACED. EXPLAINED THAT NG IS NOT PERMANENT ANSWERED QUESTIONS. SAID NEEDED TO TALK TO SISTER. WILL CALL ME BACK. Addendum: 04/28/20 at 1607 by ELIUD MCLAUGHLIN RN CM Amended: Links added.
[2020-04-28 16:49] VITALS: BP 105/45; PULSE 60; RESP 20; TEMP 95.7
[2020-04-28 20:00] VITALS: BP 117/51; PULSE 60; RESP 19; TEMP 97.7
[2020-04-29] VITALS: BP 92/71; PULSE 62; RESP 19; TEMP 97.6
[2020-04-29 04:00] VITALS: BP 113/66; PULSE 67; RESP 19; TEMP 97.6
--- NOTE | 2020-04-29 05:00 | NUR ---
NG TUBE DC BY PATIENT ng tube placed in right nare discontinued by patient . patient refusing to take medications iv fluids still in place
[2020-04-29] MEDS: LEVOTHYROXINE 50 MCG TABLET PO SCH ×2 (05:28→06:30)
[2020-04-29] MEDS: CEFEPIME HCL 2 GM VIAL IVP SCH ×4 (05:28→21:32)
[2020-04-29] MEDS: LOSARTAN 50 MG TABLET PO SCH (09:00)
[2020-04-29] MEDS: OSELTAMIVIR PHOSPHATE PO SCH ×2 (09:00→20:59)
[2020-04-29] MEDS: ASPIRIN 81MG TAB.CHEW PO SCH (09:00)
[2020-04-29] MEDS: CLOPIDOGREL BISULFATE 75 MG TAB PO SCH (09:00)
[2020-04-29] MEDS: COMPOUNDING VEHICLE NO 8 PO SCH ×2 (09:00→20:59)
[2020-04-29] MEDS: FUROSEMIDE 10 MG/ML 4ML VIAL IV SCH ×2 (09:00)
[2020-04-29] MEDS: **HM**(Cholecalciferol (Vitamin D3) (Vitamin D3) 25 MCG PO SCH (09:00)
[2020-04-29] MEDS: [UNRECOGNIZED DRUG - OTHER] PO SCH ×2 (09:00→20:59)
[2020-04-29] MEDS: METOPROLOL TARTRATE 25 MG TAB PO SCH ×3 (09:00→20:48)
[2020-04-29] MEDS: PANTOPRAZOLE SODIUM 40 MG TABLET.DR PO SCH (09:00)
[2020-04-29] MEDS: DEXTROSE 5 % AND 0.9 % NACL 1,000 ML IV SCH ×3 (09:05→20:49)
--- NOTE | 2020-04-29 10:00 | NUR ---
PT CONTINUES TO BE UNCOOPERATIVE WITH PO NUTRITION AND MEDS, MULTIPLE FAILED ATTEMPTS WITH PO MEDS AND MOUTH CARE. PT WILL SWAT WITH HIS HANDS, TURN HEAD SIDE TO SIDE, AND TURN BODY SIDE TO SIDE. SPOKE WITH QA DEVELOPER REGARDING STATUS AND REMOVAL OF NG THIS MORNING PASSED ON FROM AUTO BODY MECHANIC APPRENTICE NURSE.
[2020-04-29 10:22] VITALS: BP 131/81; PULSE 67; RESP 18; TEMP 97.2
--- NOTE | 2020-04-29 11:41 | NUR ---
PT ACCIDENTALLY REMOVED PERIPHERAL IV. PLACED ANOTHER IV INTO RIGHT FOREARM. PT TOLERATED OKAY. WHILE PLACING IV PT VISIBLY BECAME NAUSEOUS AND BEGIN TO DRY HEAVE AND SPIT UP SPUTUM. EPISODE LASTED LESS THAN TWO MINUTES. UPON COMPLETION, BED WAS PLACED ON LOWEST POSITION AND THE HEAD OF THE BED WAS ELEVATED 45 DEGREES.
--- NOTE | 2020-04-29 13:49 | NUR ---
RD FOLLOW UP Pt with poor PO intake, refusal of oral nutrition and medication. Intermittent confusion as per EMR. Pt pulled NGT. Not in agreement with food or nutrition supplements. Pending RETAIL SERVICE SPECIALIST evaluation. Pt with significant weight loss. Recommend nursing home Altered means nutrition. RD to continue to monitor. Please notify as additional nutrition concerns arise. thank you.
--- NOTE | 2020-04-29 14:20 | NUR ---
DYSPHAGIA EVAL COMPLETED. +S/S IF ASPIRATION WITH SOLIDS AND THIN LIQUIDS. RECOMMEND PUREED, NECTAR-THICK LIQUIDS; PILLS CRUSHED WITH APPLESAUCE. RE-EVALUATION IS RECOMMENDED WHEN CURRENT STATUS IMPROVES. Addendum: 04/29/20 at 1424 by EVARISTO TIERNEY, SPT ST Amended: Links added.
[2020-04-29] MEDS: ENOXAPARIN SODIUM 60 MG/0.6 ML SQ SCH (14:28)
[2020-04-29 15:48] VITALS: BP 110/53; PULSE 60; RESP 20; TEMP 98.6
[2020-04-29 19:47] VITALS: PULSE 60; RESP 18
[2020-04-29] MEDS: ATORVASTATIN CALCIUM 40 MG TABLET PO SCH ×2 (20:48)
[2020-04-29] MEDS: TAMSULOSIN HCL 0.4 MG CAP.ER.24H PO SCH ×2 (20:49)
[2020-04-29 21:06] VITALS: BP 131/62; PULSE 60; RESP 20; TEMP 96.7
--- NOTE | 2020-04-29 21:30 | NUR ---
MED ADMINISTRATION ABLE TO TOLERATE PO MEDS,NO SIGN OF ASPIRATION.REPEATEDLY REFUSES APPLE SAUCE AND / OR GELATIN OFFERED . Addendum: 04/30/20 at 0453 by RAMON GUEVARA RN RN Amended: Links added.
[2020-04-30] VITALS (7 sets, daily range): BP systolic 108–154; BP diastolic 50–84; PULSE 61–68; RESP 13–20; TEMP 96.2–97.8
[2020-04-30] MEDS: CEFEPIME HCL 2 GM VIAL IVP SCH (05:34)
[2020-04-30] MEDS: LEVOTHYROXINE 50 MCG TABLET PO SCH (06:28)
[2020-04-30] MEDS: **HM**(Cholecalciferol (Vitamin D3) (Vitamin D3) 25 MCG PO SCH (09:00)
[2020-04-30] MEDS: PANTOPRAZOLE SODIUM 40 MG TABLET.DR PO SCH (09:00)
[2020-04-30] MEDS: ASPIRIN 81MG TAB.CHEW PO SCH (09:32)
[2020-04-30] MEDS: METOPROLOL TARTRATE 25 MG TAB PO SCH ×2 (09:32→20:13)
[2020-04-30] MEDS: CLOPIDOGREL BISULFATE 75 MG TAB PO SCH (09:33)
--- NOTE | 2020-04-30 10:59 | NUR ---
spoke with pts daughter requested update. pt uncooperative with breakfast this morning. pt did allow for med administration. IVF infusing. no s/s of distress or aspiration.
--- NOTE | 2020-04-30 19:05 | NUR ---
upon assessment pt bladdder noted slightly distended, denies pain upon palpation. encouraged pt to void per urinal, voided 100cc, bladder scanned pvr 167cc. Pt assisted with positioning for oral intake. 120cc nephro supplement given by nursing. pt tolerated okay.
[2020-04-30] MEDS: ATORVASTATIN CALCIUM 40 MG TABLET PO SCH (20:13)
[2020-04-30] MEDS: TAMSULOSIN HCL 0.4 MG CAP.ER.24H PO SCH (20:13)
[2020-05-01 01:13] VITALS: BP 107/61; PULSE 83; RESP 18; TEMP 97.6
[2020-05-01 04:16] VITALS: BP_SYST 133; BP_SYST 150; BP_DIAS 83; PULSE 72; RESP 20; TEMP 96.6
[2020-05-01] MEDS: DEXTROSE 5 % AND 0.9 % NACL 1,000 ML IV SCH (04:48)
[2020-05-01] MEDS: LEVOTHYROXINE 50 MCG TABLET PO SCH (05:35)
[2020-05-01] MEDS: POTASSIUM CHLORIDE 20 MEQ ERTAB PO PRN (05:35)
[2020-05-01] MEDS: ASPIRIN 81MG TAB.CHEW PO SCH (08:39)
[2020-05-01] MEDS: PANTOPRAZOLE SODIUM 40 MG TABLET.DR PO SCH (08:40)
[2020-05-01] MEDS: CLOPIDOGREL BISULFATE 75 MG TAB PO SCH (08:40)
[2020-05-01] MEDS: METOPROLOL TARTRATE 25 MG TAB PO SCH ×2 (08:40→20:55)
[2020-05-01] MEDS: **HM**(Cholecalciferol (Vitamin D3) (Vitamin D3) 25 MCG PO SCH (08:40)
[2020-05-01] MEDS: ENOXAPARIN SODIUM 40 MG/0.4 ML SYRINGE SQ SCH (08:41)
[2020-05-01 09:00] VITALS: BP 138/59; PULSE 71; RESP 18; TEMP 97.8
[2020-05-01 11:44] VITALS: BP 112/66; PULSE 61; RESP 18; TEMP 97.6
[2020-05-01 15:36] VITALS: BP 146/62; PULSE 61; RESP 18; TEMP 98
[2020-05-01] MEDS: TAMSULOSIN HCL 0.4 MG CAP.ER.24H PO SCH (20:55)
[2020-05-01] MEDS: ATORVASTATIN CALCIUM 40 MG TABLET PO SCH (20:55)
[2020-05-01 20:58] VITALS: BP 128/57; PULSE 66; RESP 18; TEMP 96.9
[2020-05-02] VITALS (7 sets, daily range): BP systolic 109–158; BP diastolic 44–93; PULSE 60–88; RESP 16–18; TEMP 96.9–98.7
[2020-05-02] MEDS: DEXTROSE 5 % AND 0.9 % NACL 1,000 ML IV SCH (04:03)
[2020-05-02] MEDS: LEVOTHYROXINE 50 MCG TABLET PO SCH (05:42)
[2020-05-02] MEDS: CLOPIDOGREL BISULFATE 75 MG TAB PO SCH (08:56)
[2020-05-02] MEDS: ASPIRIN 81MG TAB.CHEW PO SCH (08:56)
[2020-05-02] MEDS: METOPROLOL TARTRATE 25 MG TAB PO SCH ×2 (08:56→21:15)
[2020-05-02] MEDS: PANTOPRAZOLE SODIUM 40 MG TABLET.DR PO SCH (08:56)
[2020-05-02] MEDS: ENOXAPARIN SODIUM 40 MG/0.4 ML SYRINGE SQ SCH (08:57)
[2020-05-02] MEDS: **HM**(Cholecalciferol (Vitamin D3) (Vitamin D3) 25 MCG PO SCH (08:58)
[2020-05-02] MEDS: ASCORBIC ACID 500 MG TAB PO SCH (09:00)
[2020-05-02] MEDS: ZINC SULFATE 220 CAPSULE PO SCH (09:00)
[2020-05-02] MEDS ORDERED: ALBUTEROL SULFATE/IPRATROPIUM 103/18 MCG/PUFF 14.7 GM INHR IH PRN (10:00)
[2020-05-02] MEDS ORDERED: ALBUTEROL INHALER 90MCG/INH IH PRN (10:15)
--- NOTE | 2020-05-02 15:20 | NUR ---
PT ALERT TO PERSON AND PLACE, ABLE TO SPEAK CLEARLY AND FOLLOW COMMANDS. VSS, PT ABLE TO TOLERATE NUTRITIONAL SHAKE AND LIQUIDS WITHOUT ISSUE NO COUGH OR SHORTNESS OF BREATH NOTED OR REPORTED. UPDATED DAUGHTER WITH CURRENT PLAN, AWAITING PLACEMENT PER PAINTING INSTRUCTOR [facility]ACH VS [facility]. PT ASSISTED TO CALL FAMILY.
[2020-05-02] MEDS: ATORVASTATIN CALCIUM 40 MG TABLET PO SCH (21:15)
[2020-05-02] MEDS: TAMSULOSIN HCL 0.4 MG CAP.ER.24H PO SCH (21:15)
[2020-05-03 04:32] VITALS: BP 106/66; PULSE 60; RESP 18; TEMP 98
[2020-05-03] MEDS: LEVOTHYROXINE 50 MCG TABLET PO SCH (06:26)
[2020-05-03 08:07] VITALS: BP 112/61; PULSE 70; RESP 18; TEMP 97.8
[2020-05-03] MEDS: PANTOPRAZOLE SODIUM 40 MG TABLET.DR PO SCH (08:17)
[2020-05-03] MEDS: ASCORBIC ACID 500 MG TAB PO SCH (08:17)
[2020-05-03] MEDS: ASPIRIN 81MG TAB.CHEW PO SCH (08:17)
[2020-05-03] MEDS: METOPROLOL TARTRATE 25 MG TAB PO SCH ×2 (08:17→20:46)
[2020-05-03] MEDS: ENOXAPARIN SODIUM 40 MG/0.4 ML SYRINGE SQ SCH (08:18)
[2020-05-03] MEDS: CLOPIDOGREL BISULFATE 75 MG TAB PO SCH (08:18)
[2020-05-03] MEDS: **HM**(Cholecalciferol (Vitamin D3) (Vitamin D3) 25 MCG PO SCH (08:19)
[2020-05-03] MEDS: FUROSEMIDE 20 MG TABLET PO SCH (08:19)
[2020-05-03] MEDS: ZINC SULFATE 220 CAPSULE PO SCH (08:29)
[2020-05-03] MEDS: POTASSIUM CHLORIDE 20 MEQ ERTAB PO PRN ×3 (08:29→17:12)
--- NOTE | 2020-05-03 10:44 | NUR ---
FOLLOW UP COMPLETED. Pt WITH IMPROVED P.O. INTAKE IN THE LAST 3 DAYS. Pt ABLE TO INTAKE LIQUIDS AND SHAKES EFFICIENTLY WITH NO OVERT S/S OF ASPIRATION. Pt WITH LOW P.O. OF PUREED FOODS AT THIS TIME. RECOMMEND CONTINUED P.O. DIET OF PUREED, NECTAR-THICK LIQUIDS AND CRUSHED PILLS. Addendum: 05/03/20 at 1046 by EVARISTO TIERNEY [facility] Amended: Links added.
[2020-05-03 12:01] VITALS: BP 115/48; PULSE 67; RESP 17; TEMP 97.2
--- NOTE | 2020-05-03 14:26 | NUR ---
RD FOLLOW UP Pt seen by Diet modified to LAILA Chase. Improved PO intake. Nutritional supplemental shake in place. Pt positive COVID-19. BNP 1190. Vitamin C in place. LBM 04/24/20 as per EMR. Recommend continue current diet order Recommend laxative/stool softener as medically feasible RD to continue to monitor. Please notify as additional nutrition concerns arise. Thank you.
[2020-05-03 19:43] VITALS: BP 118/64; PULSE 60; RESP 18; TEMP 98.4
[2020-05-03] MEDS: TAMSULOSIN HCL 0.4 MG CAP.ER.24H PO SCH (20:45)
[2020-05-03] MEDS: ATORVASTATIN CALCIUM 40 MG TABLET PO SCH (20:45)
[2020-05-03 23:17] VITALS: BP 114/51; PULSE 62; RESP 18; TEMP 98.4
[2020-05-04 03:58] VITALS: BP 103/62; PULSE 60; RESP 18; TEMP 98
[2020-05-04] MEDS: LEVOTHYROXINE 50 MCG TABLET PO SCH (06:32)
[2020-05-04 08:30] VITALS: BP 139/66; PULSE 61; RESP 16; TEMP 97.5
[2020-05-04] MEDS: **HM**(Cholecalciferol (Vitamin D3) (Vitamin D3) 25 MCG PO SCH (09:00)
[2020-05-04] MEDS: PANTOPRAZOLE SODIUM 40 MG TABLET.DR PO SCH (09:02)
[2020-05-04] MEDS: ASPIRIN 81MG TAB.CHEW PO SCH (09:02)
[2020-05-04] MEDS: ZINC SULFATE 220 CAPSULE PO SCH (09:02)
[2020-05-04] MEDS: CLOPIDOGREL BISULFATE 75 MG TAB PO SCH (09:02)
[2020-05-04] MEDS: FUROSEMIDE 20 MG TABLET PO SCH (09:02)
[2020-05-04] MEDS: ENOXAPARIN SODIUM 40 MG/0.4 ML SYRINGE SQ SCH (09:03)
[2020-05-04] MEDS: METOPROLOL TARTRATE 25 MG TAB PO SCH ×2 (09:04→19:57)
--- NOTE | 2020-05-04 10:11 | NUR ---
FOLLOW UP COMPLETED. Pt CURRENTLY HAS IMPROVED HIS P.O. INTAKE. Pt PREFERS SHAKES/DRINKS (SUPPLEMENTS). ROCKET MOTOR MECHANIC COORDINATED WITH NILAM ESTEVEZ. IMPROVED MENTAL STATUS AT THIS TIME. RECOMMEND CONTINUED PUREED, NECTAR-THICK LIQUIDS; PILLS CRUSHED WITH APPLESAUCE. DIET UPGRADE IS NOT RECOMMENDED AT THIS TIME. Addendum: 05/04/20 at 1021 by EVARISTO TIERNEY, [facility] ST Amended: Links added.
[2020-05-04] MEDS: ASCORBIC ACID 500 MG TAB PO SCH (10:39)
[2020-05-04 11:00] VITALS: BP 132/98; PULSE 90; RESP 18; TEMP 98.9
--- NOTE | 2020-05-04 15:03 | NUR ---
DC PLAN PATIENT ACCEPTED TO [facility] TO DC IN AM. CAN ONLY ADMIT ONE PATIENT AT A TIME WITH COVID. Addendum: 05/04/20 at 1504 by ELIUD MCLAUGHLIN RN CM Amended: Links added.
[2020-05-04 16:00] VITALS: BP 138/78; PULSE 60; RESP 17; TEMP 97.9
--- NOTE | 2020-05-04 18:55 | NUR ---
1400 CALLED TO PT'S ROOM, PT FOUND NEXT TO THE BED ON BOTH KNEES ASSISTED TO BED WITH RAIL CAR WELDER. PT DENIES PAIN AND DISCOMFORT SKIN INTACT, NO VISIBLE INJURIES. SPOKE WITH CONCRETE WORKER NOTIFIED OF PT STATUS, NEW ORDER FOR CT HEAD. PT'S VITALS STABLE. NOTIFIED FAMILY AND CHARGE NURSE OF FALL. EDUCATED PT TO CALL FOR ASSISTANCE, PT ABLE TO DEMONSTRATE USE OF CALL BUTTON. BED IN LOWEST POSITION, BELONGINGS WITHIN REACH.
[2020-05-04 19:57] VITALS: BP 140/69; PULSE 69; RESP 20; TEMP 98.4
[2020-05-04] MEDS: TAMSULOSIN HCL 0.4 MG CAP.ER.24H PO SCH (19:57)
[2020-05-04] MEDS: ATORVASTATIN CALCIUM 40 MG TABLET PO SCH (19:57)
[2020-05-04 20:10] VITALS: PULSE 60; RESP 18
[2020-05-05 00:22] VITALS: BP 139/74; PULSE 60; RESP 18; TEMP 98
[2020-05-05 04:31] VITALS: BP 127/73; PULSE 60; RESP 18; TEMP 98.2
[2020-05-05] MEDS: LEVOTHYROXINE 50 MCG TABLET PO SCH (06:45)
[2020-05-05] MEDS: **HM**(Cholecalciferol (Vitamin D3) (Vitamin D3) 25 MCG PO SCH (09:00)
[2020-05-05] MEDS: ZINC SULFATE 220 CAPSULE PO SCH (09:00)
[2020-05-05 09:06] VITALS: BP 120/69; PULSE 59; RESP 19; TEMP 98.3
[2020-05-05] MEDS: PANTOPRAZOLE SODIUM 40 MG TABLET.DR PO SCH (09:08)
[2020-05-05] MEDS: FUROSEMIDE 20 MG TABLET PO SCH (09:08)
[2020-05-05] MEDS: ASPIRIN 81MG TAB.CHEW PO SCH (09:09)
[2020-05-05] MEDS: ASCORBIC ACID 500 MG TAB PO SCH (09:09)
[2020-05-05] MEDS: METOPROLOL TARTRATE 25 MG TAB PO SCH ×2 (09:09→20:50)
[2020-05-05] MEDS: CLOPIDOGREL BISULFATE 75 MG TAB PO SCH (09:09)
[2020-05-05] MEDS: ENOXAPARIN SODIUM 40 MG/0.4 ML SYRINGE SQ SCH (09:11)
[2020-05-05 11:00] VITALS: BP 127/66; PULSE 70; RESP 18; TEMP 98.5
--- NOTE | 2020-05-05 11:36 | NUR ---
[facility] CALLED SAID PATIENT IS ACCEPTED. EMS SET UP. COVID FORM SIGNED. PASRR SENT. Addendum: 05/05/20 at 1137 by ELIUD MCLAUGHLIN RN CM Amended: Links added.
[2020-05-05 16:00] VITALS: BP 115/63; PULSE 60; RESP 18; TEMP 98.1
--- NOTE | 2020-05-05 18:49 | NUR ---
DISCHARGE READY, REPORTED CALLED TO FACILITY AT 1650. CHART COPIED, REMOVED IV. PT AWAITING PICKUP.
[2020-05-05 20:00] VITALS: BP 120/47; PULSE 57; RESP 20; TEMP 97.9
[2020-05-05] MEDS: ATORVASTATIN CALCIUM 40 MG TABLET PO SCH (20:49)
[2020-05-05] MEDS: TAMSULOSIN HCL 0.4 MG CAP.ER.24H PO SCH (20:49)
[2020-05-06] VITALS: BP 127/84; PULSE 60; RESP 20; TEMP 98
--- NOTE | 2020-05-06 00:40 | NUR ---
Ems here to pick up and delivery driver patient,patient remained stable and not in any form of distress.Daughter Charlette was called and notified .
== END 2020-05-06 00:10 | DRG 177 ==
LOC: EDH 11:54 → EDHIP 14:50 → OBSVTOIN 14:50 → 2DH 04-23 13:28
PROVIDERS: ADMIT Internal Medicine; ATTEND Internal Medicine
DX: U07.1 COVID-19 (principal); J10.08 Influenza due to other identified influenza virus with other specified pneumonia; J96.01 Acute respiratory failure with hypoxia; G92 Toxic encephalopathy; J91.8 Pleural effusion in other conditions classified elsewhere; J44.0 Chronic obstructive pulmonary disease with (acute) lower respiratory infection; I10 Essential (primary) hypertension; W18.30XA Fall on same level, unspecified, initial encounter; Y92.239 Unspecified place in hospital as the place of occurrence of the external cause; G47.09 Other insomnia; T50.905A Adverse effect of unspecified drugs, medicaments and biological substances, initial encounter; E78.00 Pure hypercholesterolemia, unspecified; R79.89 Other specified abnormal findings of blood chemistry; I25.10 Atherosclerotic heart disease of native coronary artery without angina pectoris; E11.9 Type 2 diabetes mellitus without complications; R54 Age-related physical debility; N28.9 Disorder of kidney and ureter, unspecified; R13.10 Dysphagia, unspecified; Z95.1 Presence of aortocoronary bypass graft; Z87.891 Personal history of nicotine dependence; Z95.0 Presence of cardiac pacemaker; Z79.899 Other long term (current) drug therapy; Z79.84 Long term (current) use of oral hypoglycemic drugs; Z79.82 Long term (current) use of aspirin; Z79.02 Long term (current) use of antithrombotics/antiplatelets; Y93.89 Activity, other specified; Y99.8 Other external cause status

== ENCOUNTER 2020-06-07 18:21 | Inpatient (IN) | payer OTHER ==
[~2020-06-07] VITALS: Ht 175.3 cm; Wt 69.6 kg
[~2020-06-07 18:21] MED LIST changes: -APIX2.5T PO; -ASPI-555 PO; +ASPI-556 PO; +CHOL100046 PO; +CLOP75TA32 PO; -FURO20TA4 PO; +LOSA50TA64 PO; +PANT40TA54 PO; +TORS10TA18 PO
[2020-06-07 18:59] LABS: BASOPHILS % (AUTO) 1.1 % (0.0-5.0); HEMATOCRIT 26.5 % (42-54); LYMPHOCYTES % (AUTO) 24.4 % (21.0-51.0); MEAN CORPUSCULAR HEMOGLOBIN 30.9 pg (27.0-33.0); MEAN CORPUSCULAR HGB CONC 32.5 g/dL (32.0-36.0); MEAN CORPUSCULAR VOLUME 95.3 fL (79-99); MONOCYTES % (AUTO) 13.2 % (3.0-13.0); PLATELET COUNT (AUTO) 172 K/uL (130-400); RED BLOOD CELL COUNT(AUTO) 2.78 MIL/uL (4.50-6.20); RED CELL DISTRIBUTION WIDTH 17.1 % (11.0-15.5); WHITE BLOOD COUNT (AUTO) 6.2 K/uL (4.8-10.8)
[2020-06-07 19:16] LABS: CREATININE 2.5 mg/dL (0.5-1.5); POTASSIUM 4.4 mmol/L (3.5-5.1)
[2020-06-07 19:17] LABS: INR 1.11 (0.85-1.15); PARTIAL THROMBOPLASTIN TIME 24.2 SEC (26.3-35.5); PROTHROMBIN TIME 11.9 SEC (9.6-11.6)
[2020-06-07 19:20] LABS: B-TYPE NATRIURETIC PEPTIDE 944 pg/mL (0-100)
[2020-06-07 19:21] LABS: ALBUMIN 3.2 g/dL (3.5-5.0); BILIRUBIN,TOTAL 0.6 mg/dL (0.2-1.0)
[2020-06-07] MEDS ORDERED: FUROSEMIDE 10 MG/ML 4ML VIAL IVP SCH (21:45)
[2020-06-07] MEDS ORDERED: SODIUM CHLORIDE 0.9% 10 ML VIAL IVP PRN (21:45)
[2020-06-08] VITALS (8 sets, daily range): BP systolic 117–148; BP diastolic 39–78
--- NOTE | 2020-06-08 03:00 | NUR ---
ADMIT PT ADMITTED TO ROOM 306, AAOX3. DENIES OF ANY PAINS NOR DISCOMFORT. NOTED TO HAVE SOB WITH EXERTION. ADMISSION CARE DONE. ADMISSION DATA BASE COMPLETED. UPDATED HOME MEDS IN THE COMPUTER. SANDWICH PROVIDED FOR PT TO EAT. CONSENT FOR THORACENTESIS SIGNED BY PT AND WITNESSED BY PACK MASTER. ORIENTED TO ROOM AND UNIT. IN FOR MORE CARE AND MANAGEMENT. Addendum: 06/08/20 at 0418 by NAT COOPER RN RN Amended: Links added.
[2020-06-08] MEDS ORDERED: DEXA1TAB PO (03:28)
[2020-06-08] MEDS ORDERED: ASCO500C18 PO (03:28)
[2020-06-08] MEDS ORDERED: METO5TAB7 PO ×2 (03:28)
[2020-06-08] MEDS ORDERED: GLUCAGON 1MG KIT 1 MG ML IM PRN (03:45)
[2020-06-08] MEDS ORDERED: PHARMACY COMMUNICATION MISC SCH ×2 (03:45→14:00)
[2020-06-08] MEDS ORDERED: DEXTROSE 50%-WATER 50 ML DISP.SYRIN IV PRN (03:45)
[2020-06-08] MEDS: INSULIN HUMULIN R 100 UNIT/ML 3ML SQ SCH ×4 (07:00→21:00)
[2020-06-08] MEDS: INSULIN R PO SS2 SQ SCH ×4 (07:00→21:00)
[2020-06-08] MEDS: TRAMADOL HCL 50 MG TABLET PO PRN (13:47)
--- NOTE | 2020-06-08 15:26 | NUR ---
NJP CM spoke to pt's ZAYNAB Sr discussed dc plans. Pt is assist with ADL's prior to admission, lives at home with spouse. Has O2 at home, unable to recall company name. Denies any other equipments/services. Uses [facility] for med. Feels safe to go back home, spouse able to assist with transportation and needs as necessary. DC plan to home once stable. CM to cont to follow up. Addendum: 06/08/20 at 1528 by DEVYN WARD LVN CM Amended: Links added.
[2020-06-08 15:36] LABS: CREATININE,URINE RANDOM 47 mg/dL (30-135)
[2020-06-08 15:40] LABS: APPEARANCE,URINE Clear (CLEAR); BILIRUBIN,URINE Negative (NEGATIVE); COLOR,URINE Yellow (YELLOW); GLUCOSE, URINE (UA) Negative (NEGATIVE); KETONES,URINE Negative (NEGATIVE); LEUKOCYTE ESTERASE ,URINE Trace (NEGATIVE); NITRATE,URINE Negative (NEGATIVE); OCCULT BLOOD,URINE Negative (NEGATIVE); PROTEIN,URINE Negative (NEGATIVE); UROBILINOGEN,URINE 0.2 mg/dL (0.2-1.0)
[2020-06-08 15:56] LABS: RBC,URINE 0-1 /HPF (0-1); WBC,URINE 0-1 /HPF (0-1)
[2020-06-08 15:57] LABS: BACTERIA,URINE Rare /HPF (None Seen); SQUAMOUS EPITHELIAL CELL,UR 0-2 /HPF (0-2)
[2020-06-08] MEDS ORDERED: BUDESONIDE 0.25 MG/2 ML INH IH ONE (18:07)
[2020-06-08] MEDS ORDERED: BUMETANIDE 0.25 MG/ML 4 ML VIAL ONE (18:09)
[2020-06-08] MEDS: BUMETANIDE 0.25 MG/ML 4 ML VIAL IVP SCH (21:00)
--- NOTE | 2020-06-08 21:55 | NUR ---
ASSESS SHIFT ASSESSMENT DONE, PLEASE REFER TO CHART. NO CONCERNS VERBALIZED AT THIS TIME. NO DISTRESS NOTED. KEPT COMFORTABLE AND RESTED. CALL LIGHT WITHIN REACH. WILL MONITOR PT. Addendum: 06/09/20 at 0150 by NAT COOPER RN RN Amended: Links added.
--- NOTE | 2020-06-09 01:51 | NUR ---
ROUNDS PT RESTING WELL, FAIRLY ASLEEP WITH RESPIRATIONS EVEN AND UNLABORED. NO NOTED DISTRESS. KEPT UNDISTURBED FOR NOW. WILL MONITOR PT.
[2020-06-09 03:42] LABS: BASOPHILS % (AUTO) 0.9 % (0.0-5.0); EOSINOPHILS % (AUTO) 3.3 % (0.0-8.0); HEMATOCRIT 28.6 % (42-54); LYMPHOCYTES % (AUTO) 24.4 % (21.0-51.0); MEAN CORPUSCULAR HEMOGLOBIN 30.5 pg (27.0-33.0); MEAN CORPUSCULAR HGB CONC 31.8 g/dL (32.0-36.0); MONOCYTES % (AUTO) 11.7 % (3.0-13.0); NEUTROPHILS % (AUTO) 59.4 % (40.0-77.0); PLATELET COUNT (AUTO) 171 K/uL (130-400); RED BLOOD CELL COUNT(AUTO) 2.98 MIL/uL (4.50-6.20); RED CELL DISTRIBUTION WIDTH 16.9 % (11.0-15.5); WHITE BLOOD COUNT (AUTO) 6.6 K/uL (4.8-10.8)
[2020-06-09 03:43] VITALS: BP 140/67
[2020-06-09 04:04] LABS: ALBUMIN 3.3 g/dL (3.5-5.0); BILIRUBIN,TOTAL 0.9 mg/dL (0.2-1.0); CREATININE 1.9 mg/dL (0.5-1.5); POTASSIUM 4.1 mmol/L (3.5-5.1); THYROID STIMULATING HORMONE 12.86 uIU/mL (0.36-3.74); TOTAL PROTEIN, SERUM 7.8 g/dL (6.0-8.3); URIC ACID 10.5 mg/dL (2.6-7.2)
--- NOTE | 2020-06-09 05:20 | NUR ---
ROUNDS PT ALREADY AWAKE. DENIES ANY CONCERNS AT THIS TIME. PCP IN TO ASSIST PT TO SHOWER. FOR MORE CARE.
[2020-06-09] MEDS: INSULIN R PO SS2 SQ SCH ×4 (06:03→21:00)
[2020-06-09] MEDS: INSULIN HUMULIN R 100 UNIT/ML 3ML SQ SCH ×4 (06:03→21:00)
[2020-06-09 08:46] LABS: INR 1.11 (0.85-1.15); PARTIAL THROMBOPLASTIN TIME 24.1 SEC (26.3-35.5); PROTHROMBIN TIME 11.9 SEC (9.6-11.6)
[2020-06-09 08:54] VITALS: BP 110/76
--- NOTE | 2020-06-09 09:56 | NUR ---
RE: THORACENTESIS PATIENT TESTED POSITIVE FOR COVID-19 05/03/20. NO CURRENT RESULTS STATING PATIENT IS COVID NEGATIVE AT THIS TIME. PATIENT STATES DR Lizette DELEON TOLD HIM HE WAS CLEAR. DR Alan MENDOZA MADE AWARE AND REQUESTING PATIENT TO BE RETESTED IF NO RESULTS IN CHART. Hernán MESSER RN MADE AWARE OF PROCEDURE OUTCOME.
[2020-06-09] MEDS: BUMETANIDE 0.25 MG/ML 4 ML VIAL IVP SCH ×2 (11:25→20:36)
[2020-06-09] MEDS: TRAMADOL HCL 50 MG TABLET PO PRN (11:26)
[2020-06-09] MEDS: FOLIC ACID/VITAMIN B COMP W-C 1 CAP TAB PO SCH (11:27)
[2020-06-09 12:04] VITALS: BP 132/67
[2020-06-09] MEDS ORDERED: SODIUM CHLORIDE 45 ML SPRY NS PRN (12:45)
--- NOTE | 2020-06-09 14:50 | NUR ---
RE: US/ GUIDED RIGHT THORACENTESIS ORDER, RAPID COVID 19 TEST NEGATIVE CALLED AND SPOKE TO DR. MENDOZA. HE STATES, WE NEED NEGATIVE RESULTS FROM A COVID 19 PCR TEST IN ORDER TO PROCEED WITH THORACENTESIS. CALLED AND INFORMED PRIMARY NURSE, AMY MATHEW.
[2020-06-09] MEDS ORDERED: COMPOUND IV MISC 1 EACH IVSOLN MISC PRN (15:15)
[2020-06-09 16:41] VITALS: BP 126/62
[2020-06-09] MEDS: IRON SUCROSE COMPLEX 300 MG in SODIUM CHLORIDE 0.9% 50 ML IV SCH (18:49)
[2020-06-09 20:00] VITALS: BP 132/69
[2020-06-09 23:36] VITALS: BP 141/66
[2020-06-10 04:00] VITALS: BP 125/73
[2020-06-10 04:31] LABS: EOSINOPHILS % (AUTO) 2.6 % (0.0-8.0); HEMATOCRIT 26.5 % (42-54); LYMPHOCYTES % (AUTO) 22.9 % (21.0-51.0); MEAN CORPUSCULAR HEMOGLOBIN 30.4 pg (27.0-33.0); MEAN CORPUSCULAR HGB CONC 32.1 g/dL (32.0-36.0); MEAN CORPUSCULAR VOLUME 94.6 fL (79-99); NEUTROPHILS % (AUTO) 59.2 % (40.0-77.0); PLATELET COUNT (AUTO) 156 K/uL (130-400); RED CELL DISTRIBUTION WIDTH 16.9 % (11.0-15.5); WHITE BLOOD COUNT (AUTO) 6.1 K/uL (4.8-10.8)
[2020-06-10 04:55] LABS: CREATININE 1.6 mg/dL (0.5-1.5); POTASSIUM 3.7 mmol/L (3.5-5.1)
[2020-06-10] MEDS: LEVOTHYROXINE 50 MCG TABLET PO SCH (06:05)
[2020-06-10] MEDS: INSULIN HUMULIN R 100 UNIT/ML 3ML SQ SCH ×3 (06:20→16:30)
[2020-06-10] MEDS: INSULIN R PO SS2 SQ SCH ×4 (06:32→20:12)
[2020-06-10 07:50] VITALS: BP 112/36
[2020-06-10 09:13] LABS: HEPATITIS Bs ANTIGEN SCREEN P Negative (Negative)
[2020-06-10] MEDS: BUMETANIDE 0.25 MG/ML 4 ML VIAL IVP SCH ×2 (11:00→19:46)
[2020-06-10 11:01] VITALS: BP 135/32
[2020-06-10] MEDS: IRON SUCROSE COMPLEX 300 MG in SODIUM CHLORIDE 0.9% 50 ML IV SCH (13:30)
--- NOTE | 2020-06-10 13:30 | NUR ---
RE: RIGHT THORACENTESIS ORDER, 06/09/20 COVID TEST + CALLED DR. MENDOZA AND INFORMED HIM OF ORDERS AND TEST RESULTS. ORDERED PT TO BE REFERRED TO COVID TEAM FOR A RIGHT THORACENTESIS.
[2020-06-10] MEDS: FOLIC ACID/VITAMIN B COMP W-C 1 CAP TAB PO SCH (13:31)
--- NOTE | 2020-06-10 15:48 | NUR ---
report called to will aguirre of 4rth floor
[2020-06-10 16:10] VITALS: BP 100/60
--- NOTE | 2020-06-10 16:40 | NUR ---
TRANSFER FROM 3RD FLOOR. PATIENT RECEIVED FROM ROOM 306 VIA WHEELCHAIR IN STABLE CONDITION. HE HAS BEEN ORIENTED TO ROOM AND USE OF CALL LIGHT. WILL CONTINUE TO MONITOR.
[2020-06-10 21:07] VITALS: BP 132/68
[2020-06-11] VITALS (7 sets, daily range): BP systolic 120–138; BP diastolic 55–71
--- NOTE | 2020-06-11 05:49 | NUR ---
ASSESSMENT PT. IS ALERT AND ORIENTED TIMES 4 NO COMPLAINTS OF ANY PAIN. PATIENT IS SATING MID 90'S ON ROOM AIR. SKIN IS INTACT. BLOOD SUGAR LAST NIGHT JUST MATTHEW 200. PT. REFUSES TO TAKE ANY INSULIN. VITALS ARE STABLE WILL CONTINUE TO MONITOR.
[2020-06-11] MEDS: LEVOTHYROXINE 50 MCG TABLET PO SCH (06:10)
[2020-06-11] MEDS: INSULIN R PO SS2 SQ SCH ×4 (06:10→20:45)
[2020-06-11] MEDS: FOLIC ACID/VITAMIN B COMP W-C 1 CAP TAB PO SCH (10:19)
[2020-06-11] MEDS: BUMETANIDE 0.25 MG/ML 4 ML VIAL IVP SCH ×2 (10:19→19:29)
--- NOTE | 2020-06-11 16:00 | NUR ---
MD notification Notified by MD @ bs that thoracentesis will be performed @ beside tomorrow 06/12/2020. Will update consent form as requested.
--- NOTE | 2020-06-11 17:38 | NUR ---
Family contact Daughter called, updated as requested, ASHLEY GASTON noted. Addendum: 06/11/20 at 1739 by JENIFFER CAAL RN RN update time to 1200
[2020-06-12 04:00] VITALS: BP 127/61
[2020-06-12] MEDS: INSULIN R PO SS2 SQ SCH ×4 (05:59→20:23)
[2020-06-12] MEDS: LEVOTHYROXINE 50 MCG TABLET PO SCH (06:00)
[2020-06-12 06:17] LABS: BASOPHILS % (AUTO) 0.9 % (0.0-5.0); EOSINOPHILS % (AUTO) 2.6 % (0.0-8.0); HEMATOCRIT 26.6 % (42-54); MEAN CORPUSCULAR HEMOGLOBIN 30.6 pg (27.0-33.0); MEAN CORPUSCULAR HGB CONC 32.7 g/dL (32.0-36.0); MEAN CORPUSCULAR VOLUME 93.7 fL (79-99); MONOCYTES % (AUTO) 14.3 % (3.0-13.0); NEUTROPHILS % (AUTO) 56.9 % (40.0-77.0); PLATELET COUNT (AUTO) 131 K/uL (130-400); RED BLOOD CELL COUNT(AUTO) 2.84 MIL/uL (4.50-6.20); RED CELL DISTRIBUTION WIDTH 16.8 % (11.0-15.5); WHITE BLOOD COUNT (AUTO) 5.9 K/uL (4.8-10.8)
[2020-06-12 06:52] LABS: CREATININE 1.3 mg/dL (0.5-1.5); POTASSIUM 3.1 mmol/L (3.5-5.1)
[2020-06-12 06:56] LABS: INR 1.12 (0.85-1.15); PARTIAL THROMBOPLASTIN TIME 27.1 SEC (26.3-35.5)
[2020-06-12 08:02] VITALS: BP 122/64
[2020-06-12] MEDS: FOLIC ACID/VITAMIN B COMP W-C 1 CAP TAB PO SCH (09:17)
[2020-06-12] MEDS: BUMETANIDE 0.25 MG/ML 4 ML VIAL IVP SCH ×2 (09:18→19:40)
[2020-06-12 12:24] VITALS: BP 120/60
[2020-06-12] MEDS ORDERED: LIDOCAINE HCL-MPF 1% 2ML VIAL ONE (14:18)
--- NOTE | 2020-06-12 14:56 | NUR ---
Procedure [id number] usuccessfully performed thoracentesis, left sided xmultiple attempts. @ standby for assist. sat 99-100% on 2l/nc maint, pulse 60's. to xray & ct as ordered, bandaid applied after, bleeding controlled.
[2020-06-12 15:46] VITALS: BP 136/72
[2020-06-12] MEDS: TRAMADOL HCL 50 MG TABLET PO PRN ×2 (19:45→20:24)
[2020-06-12 20:20] VITALS: BP 120/65
[2020-06-13 00:13] VITALS: BP 125/71
[2020-06-13 04:03] VITALS: BP 119/52
[2020-06-13] MEDS: INSULIN R PO SS2 SQ SCH ×3 (06:05→16:30)
[2020-06-13] MEDS: LEVOTHYROXINE 50 MCG TABLET PO SCH (06:13)
[2020-06-13 08:00] VITALS: BP 118/58
[2020-06-13] MEDS: FOLIC ACID/VITAMIN B COMP W-C 1 CAP TAB PO SCH (08:52)
[2020-06-13 09:29] LABS: CREATININE 1.3 mg/dL (0.5-1.5); POTASSIUM 3.4 mmol/L (3.5-5.1)
[2020-06-13] MEDS: BUMETANIDE 0.25 MG/ML 4 ML VIAL IVP SCH (09:34)
[2020-06-13 11:00] VITALS: BP 122/64
--- NOTE | 2020-06-13 12:32 | NUR ---
RE: THORACENTESIS PATIENT TESTED POSITIVE FOR COVID-[address] Alan MENDOZA MADE AWARE AND CANCELED THORACENTESIS BY RADIOLOGY. AMY HSIEH MADE AWARE OF PROCEDURE OUTCOME.
[2020-06-13] MEDS ORDERED: BUME1TAB7 PO (15:40)
[2020-06-13 16:00] VITALS: BP 103/44
[2020-06-13] MEDS ORDERED: POTASSIUM CHLORIDE 20 MEQ ERTAB PO SCH (16:40)
--- NOTE | 2020-06-13 18:36 | NUR ---
Pt discharged instructios reviewed with patient, patient verbalize understanding. IV removed, Pt wheelchaired to front and picked up by family
== END 2020-06-13 18:30 | disposition home or self-care (01) | DRG 177 ==
LOC: EDH 18:21 → EDHIP 21:22 → OBSVTOIN 21:22 → 3BH 06-08 02:26 → 4AH 06-10 16:51
PROVIDERS: ADMIT Family Medicine; ATTEND Family Medicine
PROC: 0WJ93ZZ Inspection of Right Pleural Cavity, Percutaneous Approach (ICD-10-PCS; principal; 2020-06-12)
DX: U07.1 COVID-19 (principal); J96.01 Acute respiratory failure with hypoxia; I50.23 Acute on chronic systolic (congestive) heart failure; N17.9 Acute kidney failure, unspecified; I13.0 Hypertensive heart and chronic kidney disease with heart failure and stage 1 through stage 4 chronic kidney disease, or unspecified chronic kidney disease; J98.11 Atelectasis; I51.7 Cardiomegaly; N18.3 Chronic kidney disease, stage 3 (moderate); Z95.1 Presence of aortocoronary bypass graft; I25.10 Atherosclerotic heart disease of native coronary artery without angina pectoris; D64.9 Anemia, unspecified; E03.9 Hypothyroidism, unspecified; E11.22 Type 2 diabetes mellitus with diabetic chronic kidney disease; E78.5 Hyperlipidemia, unspecified; E88.09 Other disorders of plasma-protein metabolism, not elsewhere classified; K74.60 Unspecified cirrhosis of liver; Z79.02 Long term (current) use of antithrombotics/antiplatelets; Z79.82 Long term (current) use of aspirin; Z79.84 Long term (current) use of oral hypoglycemic drugs; Z79.899 Other long term (current) drug therapy; Z88.8 Allergy status to other drugs, medicaments and biological substances; Z88.2 Allergy status to sulfonamides; Z88.1 Allergy status to other antibiotic agents; Z88.0 Allergy status to penicillin; Z95.0 Presence of cardiac pacemaker
CPT/HCPCS: 36415; 71045; 71250; 76700; 76770; 80048; 80053; 81001; 82044; 82550; 82570; 82728; 82948; 83540; 83550; 83880; 84145; 84443; 84484; 84550; 85025; 85378; 85610; 85730; 86038; 86160; 86215; 86235; 86706; 87340; 87426; 87520; 93005; 93306; 93356; A6250; G0378; J1756; J1815; J3490; U0003

== ENCOUNTER 2020-07-13 12:01 | Observation (INO) | payer OTHER ==
[~2020-07-13] VITALS: Ht 175.3 cm; Wt 73.8 kg
[~2020-07-13 12:01] MED LIST changes: +ASCO500C18 PO; +BUME1TAB7 PO; -TORS10TA18 PO
[2020-07-13 12:53] LABS: CREATININE 1.8 mg/dL (0.5-1.5); POTASSIUM 3.9 mmol/L (3.5-5.1)
[2020-07-13 12:58] LABS: ALBUMIN 3.5 g/dL (3.5-5.0); TOTAL PROTEIN, SERUM 8.7 g/dL (6.0-8.3)
[2020-07-13 13:12] LABS: INR 1.14 (0.85-1.15); PARTIAL THROMBOPLASTIN TIME 24.3 SEC (26.3-35.5); PROTHROMBIN TIME 12.2 SEC (9.6-11.6)
[2020-07-13 13:24] LABS: B-TYPE NATRIURETIC PEPTIDE 793 pg/mL (0-100)
[2020-07-13 13:27] LABS: BASOPHILS % (AUTO) 0.9 % (0.0-5.0); EOSINOPHILS % (AUTO) 1.9 % (0.0-8.0); HEMATOCRIT 29.9 % (42-54); LYMPHOCYTES % (AUTO) 20.8 % (21.0-51.0); MEAN CORPUSCULAR HGB CONC 32.8 g/dL (32.0-36.0); MEAN CORPUSCULAR VOLUME 94.6 fL (79-99); MONOCYTES % (AUTO) 12.3 % (3.0-13.0); NEUTROPHILS % (AUTO) 63.9 % (40.0-77.0); PLATELET COUNT (AUTO) 131 K/uL (130-400); RED BLOOD CELL COUNT(AUTO) 3.16 MIL/uL (4.50-6.20); RED CELL DISTRIBUTION WIDTH 15.3 % (11.0-15.5); WHITE BLOOD COUNT (AUTO) 5.8 K/uL (4.8-10.8)
[2020-07-13] MEDS ORDERED: POTASSIUM CHLORIDE 20 MEQ ERTAB PO PRN (14:45)
[2020-07-13] MEDS ORDERED: DEXTROSE 50%-WATER 50 ML DISP.SYRIN IV PRN (14:45)
[2020-07-13] MEDS ORDERED: POTASSIUM CHLORIDE 10% ELIXIR 20 MEQ/15 ML UDCUP PO PRN (14:45)
[2020-07-13] MEDS ORDERED: POTASSIUM CHLORIDE 20MEQ/100ML 100 ML IV PRN (14:45)
[2020-07-13] MEDS ORDERED: GLUCAGON 1MG KIT 1 MG ML IM PRN (14:45)
[2020-07-13] MEDS ORDERED: LIDOCAINE HCL-MPF 1% 2ML VIAL IJ PRN (14:45)
[2020-07-13] MEDS ORDERED: ACETAMINOPHEN 325 MG TAB PO PRN ×2 (14:45)
[2020-07-13] MEDS: INSULIN R PO SSI SQ SCH ×2 (16:30→20:15)
[2020-07-13] MEDS: BUMETANIDE 0.25 MG/ML 4 ML VIAL IVP SCH (16:49)
[2020-07-13 17:23] VITALS: BP 135/64
[2020-07-13 19:00] VITALS: BP 122/65
[2020-07-13] MEDS: LOSARTAN 50 MG TABLET PO SCH (20:10)
[2020-07-13] MEDS: TAMSULOSIN HCL 0.4 MG CAP.ER.24H PO SCH (20:14)
[2020-07-13] MEDS: ATORVASTATIN CALCIUM 40 MG TABLET PO SCH (20:15)
[2020-07-13] MEDS ORDERED: APIXABAN 2.5 MG TABLET PO SCH (21:00)
[2020-07-14] VITALS: BP 131/53
[2020-07-14 04:00] VITALS: BP 116/49
[2020-07-14 04:13] LABS: BASOPHILS % (AUTO) 0.8 % (0.0-5.0); EOSINOPHILS % (AUTO) 2.6 % (0.0-8.0); HEMATOCRIT 26.8 % (42-54); LYMPHOCYTES % (AUTO) 23.8 % (21.0-51.0); MEAN CORPUSCULAR HGB CONC 32.5 g/dL (32.0-36.0); MEAN CORPUSCULAR VOLUME 95.4 fL (79-99); NEUTROPHILS % (AUTO) 58.6 % (40.0-77.0); PLATELET COUNT (AUTO) 116 K/uL (130-400); RED BLOOD CELL COUNT(AUTO) 2.81 MIL/uL (4.50-6.20); WHITE BLOOD COUNT (AUTO) 5.1 K/uL (4.8-10.8)
[2020-07-14 04:29] LABS: INR 1.15 (0.85-1.15); PARTIAL THROMBOPLASTIN TIME 24.5 SEC (26.3-35.5); PROTHROMBIN TIME 12.4 SEC (9.6-11.6)
[2020-07-14 04:49] LABS: ALBUMIN 3.1 g/dL (3.5-5.0); BILIRUBIN,TOTAL 0.7 mg/dL (0.2-1.0); CREATININE 1.7 mg/dL (0.5-1.5); POTASSIUM 3.9 mmol/L (3.5-5.1); TOTAL PROTEIN, SERUM 7.4 g/dL (6.0-8.3)
[2020-07-14] MEDS: GLIPIZIDE 5 MG TABLET PO SCH (06:04)
[2020-07-14] MEDS: INSULIN R PO SSI SQ SCH ×4 (06:04→19:33)
[2020-07-14] MEDS: BUMETANIDE 0.25 MG/ML 4 ML VIAL IVP SCH ×2 (06:04→17:45)
[2020-07-14 07:51] VITALS: BP 132/56
[2020-07-14] MEDS: PANTOPRAZOLE SODIUM 40 MG TABLET.DR PO SCH (08:31)
[2020-07-14] MEDS: SPIRONOLACTONE 25 MG TAB PO SCH (08:32)
[2020-07-14] MEDS: METOPROLOL SUCCINATE 50 MG TAB.SR.24H PO SCH (08:32)
[2020-07-14] MEDS ORDERED: CLOPIDOGREL BISULFATE 75 MG TAB PO SCH (09:00)
[2020-07-14 11:40] VITALS: BP 115/39
--- NOTE | 2020-07-14 13:50 | NUR ---
DR. WHITLEY IN TO SEE PT. PLAN IS TO DO THORACENTESIS AND CONSENT HAS BEEN SIGNED. BEDSIDE THORACENTESIS NOW DONE, 1.8 ML DARK YELLOW FLUID OBTAINED AND SENT TO LAB. PROCEDURE TOLERATED, DR. WHITLEY WAS ASST. BY AMY Leonard .PT. TOLERATED PROCEDURE WELL. RESTING NOW. PAIN MED. OFFERED AND DECLINED.
--- NOTE | 2020-07-14 14:00 | NUR ---
2-D ECHO CX. EARLIER BY DR. KAT. MADE PT. AWARE.
[2020-07-14 16:08] LABS: APPEARANCE BODY FLUID CLOUDY (CLEAR); COLOR,BODY FLUID ORANGE (LT YELLOW); SPECIMENTYPE,BODY FLUID PLEURAL; TOTAL VOLUME,BODY FLUID 1800 mL
[2020-07-14 16:51] VITALS: BP 121/49
[2020-07-14 16:53] LABS: BODY FLUID WBC 90 /cu. mm.
[2020-07-14 16:54] LABS: BODY FLUID RBC 5850 /cu. mm.
[2020-07-14 17:06] LABS: BF LYMPHOCYTE 58 %; BF OTHER CELLS 2
[2020-07-14] MEDS: LOSARTAN 50 MG TABLET PO SCH (19:32)
[2020-07-14] MEDS: ATORVASTATIN CALCIUM 40 MG TABLET PO SCH (19:41)
[2020-07-14] MEDS: TAMSULOSIN HCL 0.4 MG CAP.ER.24H PO SCH (19:41)
[2020-07-14 20:08] VITALS: BP_SYST 119; BP_SYST 123; BP_DIAS 37; BP_DIAS 47
[2020-07-14] MEDS ORDERED: BENZONATATE 100 MG CAPSULE PO PRN (21:00)
[2020-07-14] MEDS ORDERED: BENZONATATE 100 MG CAPSULE PO ONE (21:05)
[2020-07-15 00:12] VITALS: BP 122/47
[2020-07-15 04:17] VITALS: BP 128/48
[2020-07-15] MEDS: INSULIN R PO SSI SQ SCH ×2 (04:18→11:30)
[2020-07-15] MEDS: GLIPIZIDE 5 MG TABLET PO SCH (04:18)
[2020-07-15 04:50] LABS: CREATININE 1.5 mg/dL (0.5-1.5); POTASSIUM 3.5 mmol/L (3.5-5.1)
[2020-07-15] MEDS: BUMETANIDE 0.25 MG/ML 4 ML VIAL IVP SCH (05:11)
[2020-07-15] MEDS ORDERED: METO-408 PO (07:27)
[2020-07-15] MEDS ORDERED: APIX2.5T PO (07:27)
[2020-07-15 08:59] VITALS: BP 119/54
[2020-07-15] MEDS: SPIRONOLACTONE 25 MG TAB PO SCH (09:03)
[2020-07-15] MEDS: PANTOPRAZOLE SODIUM 40 MG TABLET.DR PO SCH (09:04)
[2020-07-15] MEDS: METOPROLOL SUCCINATE 50 MG TAB.SR.24H PO SCH (09:07)
--- NOTE | 2020-07-15 10:05 | NUR ---
Dr Nielsen paged For discharge orders
--- NOTE | 2020-07-15 10:08 | NUR ---
Dr Nielsen As per Dr Nielsen pt cleared for discharge.
[2020-07-15 11:42] VITALS: BP 170/44
--- NOTE | 2020-07-15 13:07 | NUR ---
DISCHARGE Pt clear for discharge. NAD. No complaints at this time. Denies chest pain or sob. Right posterior bangage to back clean dry and intact. Discharge papers and instructions given to pt and daughter Charlette [phone]. Verbalizes understanding of follow up and medication teaching
--- NOTE | 2020-07-15 18:25 | NUR ---
SPOKE TO PATIENT AT BEDSIDE FOR [place] LIVES WITH SPOUSE, DAUGHTER ZAYNAB ROGERS close by for shopping, errands assistance etc. HAS OXYGEN CONCENTRATOR, W/CHAIR, CANE, ROLLING WALKER, NO PROVIDER; STATES INDEPENDENT WITH DRESSING, BATHING, FEATING, ETC. DTR/SON WILL PORVIDE TRANSPORT. SEES MD Elin SALINAS, FOR DC TODAY HAS OXYGEN AT HOME WELL Addendum: 07/15/20 at 1828 by KAVITHA ESPARZA RN Amended: Links added.
== END 2020-07-15 13:05 | disposition home or self-care (01) ==
LOC: EDH 12:01 → INTOOBSV 12:02 → EDHIP 12:02 → 4BH 14:14
PROVIDERS: ADMIT Internal Medicine Cardiovascular Disease; ATTEND Internal Medicine Cardiovascular Disease
DX: J90 Pleural effusion, not elsewhere classified (principal); I50.23 Acute on chronic systolic (congestive) heart failure; J96.11 Chronic respiratory failure with hypoxia; I13.0 Hypertensive heart and chronic kidney disease with heart failure and stage 1 through stage 4 chronic kidney disease, or unspecified chronic kidney disease; K76.6 Portal hypertension; I48.91 Unspecified atrial fibrillation; N18.3 Chronic kidney disease, stage 3 (moderate); E11.22 Type 2 diabetes mellitus with diabetic chronic kidney disease; K76.0 Fatty (change of) liver, not elsewhere classified; R16.0 Hepatomegaly, not elsewhere classified; I25.5 Ischemic cardiomyopathy; I25.10 Atherosclerotic heart disease of native coronary artery without angina pectoris; Z79.01 Long term (current) use of anticoagulants; Z86.19 Personal history of other infectious and parasitic diseases; Z95.1 Presence of aortocoronary bypass graft; Z95.0 Presence of cardiac pacemaker
CPT/HCPCS: 36415 ×3; 71045 ×2; 80048; 80053 ×2; 82945; 82948 ×7; 83615 ×2; 83880; 83986; 84157 ×2; 85025 ×2; 85610 ×2; 85730 ×2; 89051; 93005; 96374; 96376 ×2; 99284; C1729; G0378 ×13; J3490 ×3

== ENCOUNTER 2020-09-13 07:43 | Inpatient (IN) | payer OTHER ==
[2020-09-09 14:25] LABS: BASOPHILS % (AUTO) 0.9 % (0.0-5.0); EOSINOPHILS % (AUTO) 2.2 % (0.0-8.0); HEMATOCRIT 30.7 % (42-54); LYMPHOCYTES % (AUTO) 18.6 % (21.0-51.0); MEAN CORPUSCULAR HEMOGLOBIN 29.8 pg (27.0-33.0); MEAN CORPUSCULAR HGB CONC 31.9 g/dL (32.0-36.0); MEAN CORPUSCULAR VOLUME 93.3 fL (79-99); MONOCYTES % (AUTO) 12.8 % (3.0-13.0); NEUTROPHILS % (AUTO) 65.2 % (40.0-77.0); PLATELET COUNT (AUTO) 151 K/uL (130-400); RED BLOOD CELL COUNT(AUTO) 3.29 MIL/uL (4.50-6.20); RED CELL DISTRIBUTION WIDTH 14.6 % (11.0-15.5); WHITE BLOOD COUNT (AUTO) 5.9 K/uL (4.8-10.8)
[2020-09-09 14:39] LABS: CREATININE 1.8 mg/dL (0.5-1.5); POTASSIUM 3.2 mmol/L (3.5-5.1)
[2020-09-09 14:41] LABS: INR 1.14 (0.85-1.15); PARTIAL THROMBOPLASTIN TIME 25.4 SEC (26.3-35.5); PROTHROMBIN TIME 12.2 SEC (9.6-11.6)
[2020-09-12 13:50] VITALS: BP 119/50
[2020-09-13] VITALS (8 sets, daily range): BP systolic 58–132; BP diastolic 42–123
[~2020-09-13 07:43] MED LIST changes: -ASPI-556 PO; -LOSA50TA64 PO; +METO-408 PO; -METO25 PO
[2020-09-13] MEDS ORDERED: CEFAZOLIN SODIUM 1 GM VIAL IVP ONE (08:00)
[2020-09-13] MEDS ORDERED: SODIUM CHLORIDE 0.9% 1000ML 1,000 ML IV SCH (08:00)
[2020-09-13 08:32] LABS: BASOPHILS % (AUTO) 0.8 % (0.0-5.0); EOSINOPHILS % (AUTO) 3.3 % (0.0-8.0); HEMATOCRIT 29.7 % (42-54); LYMPHOCYTES % (AUTO) 20.7 % (21.0-51.0); MEAN CORPUSCULAR HEMOGLOBIN 30.2 pg (27.0-33.0); MEAN CORPUSCULAR HGB CONC 32.3 g/dL (32.0-36.0); MEAN CORPUSCULAR VOLUME 93.4 fL (79-99); MONOCYTES % (AUTO) 11.2 % (3.0-13.0); NEUTROPHILS % (AUTO) 63.6 % (40.0-77.0); PLATELET COUNT (AUTO) 142 K/uL (130-400); RED BLOOD CELL COUNT(AUTO) 3.18 MIL/uL (4.50-6.20); RED CELL DISTRIBUTION WIDTH 14.9 % (11.0-15.5); WHITE BLOOD COUNT (AUTO) 5.2 K/uL (4.8-10.8)
[2020-09-13 08:48] LABS: CREATININE 1.8 mg/dL (0.5-1.5); POTASSIUM 3.5 mmol/L (3.5-5.1)
[2020-09-13] MEDS ORDERED: BUDE10.2 IH (10:02)
[2020-09-13] MEDS ORDERED: FERR324T PO (10:02)
[2020-09-13] MEDS ORDERED: BUME2TAB5 PO (10:02)
[2020-09-13] MEDS ORDERED: CEFAZOLIN SODIUM 1 GM VIAL ONE ×2 (13:27→13:30)
[2020-09-13] MEDS ORDERED: MIDAZOLAM HCL 1 MG/ML 2ML VIAL ONE ×2 (13:27→15:23)
[2020-09-13] MEDS ORDERED: MEPERIDINE-PF 25 MG/ML SYG ONE ×2 (13:27→15:23)
[2020-09-13] MEDS ORDERED: LIDOCAINE HCL 1% MDV 50ML VIAL ONE (13:27)
[2020-09-13] MEDS ORDERED: BUPIVACAINE/PF 0.25% 30ML VIAL IJ ONE (13:27)
[2020-09-13] MEDS ORDERED: IODIXANOL 320 MG/ML 100 ML VIAL ONE (14:17)
[2020-09-13] MEDS ORDERED: THROMBIN-JMI 5000 UNIT/VIAL TP ONE (15:44)
[2020-09-13] MEDS: ACETAMINOPHEN-CODEINE 300/30MG TAB PO PRN (19:07)
[2020-09-13] MEDS: ALBUTEROL SULFATE 0.083% 2.5 MG/3 ML INH IH SCH ×2 (19:12→23:19)
[2020-09-13] MEDS: BUDESONIDE 0.5 MG/2 ML INH IH SCH (19:12)
[2020-09-13] MEDS ORDERED: GLUCAGON 1MG KIT 1 MG ML IM PRN (19:45)
[2020-09-13] MEDS ORDERED: DEXTROSE 50%-WATER 50 ML DISP.SYRIN IV PRN (19:45)
[2020-09-13] MEDS: BUMETANIDE 1 MG TAB PO SCH (20:03)
[2020-09-13] MEDS: TAMSULOSIN HCL 0.4 MG CAP.ER.24H PO SCH (20:03)
[2020-09-13] MEDS: ATORVASTATIN CALCIUM 40 MG TABLET PO SCH (20:03)
[2020-09-13] MEDS: INSULIN HUMULIN R 100 UNIT/ML 3ML SQ SCH (21:00)
[2020-09-14] VITALS (12 sets, daily range): BP systolic 106–123; BP diastolic 52–64
[2020-09-14 05:17] LABS: BASOPHILS % (AUTO) 0.4 % (0.0-5.0); EOSINOPHILS % (AUTO) 0.5 % (0.0-8.0); HEMATOCRIT 26.3 % (42-54); LYMPHOCYTES % (AUTO) 9.3 % (21.0-51.0); MEAN CORPUSCULAR HEMOGLOBIN 29.6 pg (27.0-33.0); MEAN CORPUSCULAR HGB CONC 31.9 g/dL (32.0-36.0); MEAN CORPUSCULAR VOLUME 92.6 fL (79-99); MONOCYTES % (AUTO) 7.7 % (3.0-13.0); NEUTROPHILS % (AUTO) 81.7 % (40.0-77.0); PLATELET COUNT (AUTO) 136 K/uL (130-400); RED BLOOD CELL COUNT(AUTO) 2.84 MIL/uL (4.50-6.20); RED CELL DISTRIBUTION WIDTH 14.8 % (11.0-15.5); WHITE BLOOD COUNT (AUTO) 7.6 K/uL (4.8-10.8)
[2020-09-14 05:19] LABS: CREATININE 1.5 mg/dL (0.5-1.5); POTASSIUM 3.1 mmol/L (3.5-5.1)
[2020-09-14 05:30] LABS: B-TYPE NATRIURETIC PEPTIDE 689 pg/mL (0-100)
[2020-09-14] MEDS: ALBUTEROL SULFATE 0.083% 2.5 MG/3 ML INH IH SCH ×3 (06:11→18:40)
[2020-09-14] MEDS: BUDESONIDE 0.5 MG/2 ML INH IH SCH ×2 (06:28→18:40)
[2020-09-14] MEDS: LEVOTHYROXINE 50 MCG TABLET PO SCH (06:42)
[2020-09-14] MEDS: INSULIN HUMULIN R 100 UNIT/ML 3ML SQ SCH ×4 (06:43→21:00)
[2020-09-14] MEDS: **HM**Cholecalciferol (Vitamin D3) (Vitamin D3) 25 MCG PO SCH (09:00)
[2020-09-14] MEDS: METOPROLOL SUCCINATE 12.5 MG PO SCH (09:00)
[2020-09-14] MEDS: CLOPIDOGREL BISULFATE 75 MG TAB PO SCH (09:26)
[2020-09-14] MEDS: ASCORBIC ACID 500 MG TAB PO SCH (09:27)
[2020-09-14] MEDS: GLIPIZIDE 5 MG TABLET PO SCH (09:27)
[2020-09-14] MEDS: PANTOPRAZOLE SODIUM 40 MG TABLET.DR PO SCH (09:27)
[2020-09-14] MEDS: FERROUS GLUCONATE 325 MG TABLET PO SCH (09:27)
[2020-09-14] MEDS: BUMETANIDE 1 MG TAB PO SCH ×2 (09:28→21:24)
[2020-09-14] MEDS ORDERED: POTASSIUM CHLORIDE 20 MEQ ERTAB PO PRN (12:30)
[2020-09-14] MEDS ORDERED: POTASSIUM CHLORIDE 10% ELIXIR 20 MEQ/15 ML UDCUP PO PRN (12:30)
[2020-09-14] MEDS ORDERED: POTASSIUM CHLORIDE 20MEQ/100ML 100 ML IV PRN (12:30)
[2020-09-14] MEDS ORDERED: LIDOCAINE HCL-MPF 1% 2ML VIAL IV PRN ×2 (12:30)
[2020-09-14] MEDS: POTASSIUM CHLORIDE 20MEQ/100ML 100 ML IV PRN ×2 (13:21→14:58)
[2020-09-14] MEDS ORDERED: BUPIVACAINE/PF 0.25% 30ML VIAL IJ ONE (15:58)
[2020-09-14] MEDS ORDERED: VANCOMYCIN 1GM+NS 250ML 500 ML IV ONE (15:59)
[2020-09-14] MEDS ORDERED: MIDAZOLAM HCL 1 MG/ML 2ML VIAL ONE ×3 (15:59→17:28)
[2020-09-14] MEDS ORDERED: LIDOCAINE HCL 1% MDV 50ML VIAL ONE (15:59)
[2020-09-14] MEDS ORDERED: MEPERIDINE-PF 25 MG/ML SYG ONE (16:01)
[2020-09-14] MEDS ORDERED: IODIXANOL 320 MG/ML 100 ML VIAL ONE (16:04)
[2020-09-14] MEDS ORDERED: MEPERIDINE-PF 50 MG/ML SYG ONE (16:32)
[2020-09-14] MEDS ORDERED: THROMBIN-JMI 5000 UNIT/VIAL TP ONE ×3 (17:40→17:50)
[2020-09-14] MEDS: ATORVASTATIN CALCIUM 40 MG TABLET PO SCH (21:23)
[2020-09-14] MEDS: TAMSULOSIN HCL 0.4 MG CAP.ER.24H PO SCH (21:23)
[2020-09-15] VITALS (7 sets, daily range): BP systolic 96–157; BP diastolic 54–79
[2020-09-15] MEDS: ALBUTEROL SULFATE 0.083% 2.5 MG/3 ML INH IH SCH ×4 (00:18→18:24)
[2020-09-15 05:27] LABS: BASOPHILS % (AUTO) 0.4 % (0.0-5.0); EOSINOPHILS % (AUTO) 0.5 % (0.0-8.0); HEMATOCRIT 24.5 % (42-54); LYMPHOCYTES % (AUTO) 10.1 % (21.0-51.0); MEAN CORPUSCULAR HGB CONC 32.2 g/dL (32.0-36.0); MEAN CORPUSCULAR VOLUME 93.2 fL (79-99); MONOCYTES % (AUTO) 11.5 % (3.0-13.0); NEUTROPHILS % (AUTO) 77.1 % (40.0-77.0); PLATELET COUNT (AUTO) 119 K/uL (130-400); RED BLOOD CELL COUNT(AUTO) 2.63 MIL/uL (4.50-6.20); RED CELL DISTRIBUTION WIDTH 15.1 % (11.0-15.5); WHITE BLOOD COUNT (AUTO) 8.1 K/uL (4.8-10.8)
[2020-09-15] MEDS: LEVOTHYROXINE 50 MCG TABLET PO SCH (05:41)
[2020-09-15 05:47] LABS: INR 1.14 (0.85-1.15); PARTIAL THROMBOPLASTIN TIME 27.8 SEC (26.3-35.5); PROTHROMBIN TIME 12.3 SEC (9.6-11.6)
[2020-09-15 05:50] LABS: CREATININE 1.6 mg/dL (0.5-1.5); POTASSIUM 4.3 mmol/L (3.5-5.1)
[2020-09-15] MEDS: INSULIN HUMULIN R 100 UNIT/ML 3ML SQ SCH ×4 (05:58→21:00)
[2020-09-15] MEDS: BUDESONIDE 0.5 MG/2 ML INH IH SCH ×2 (06:26→18:40)
[2020-09-15] MEDS: CLOPIDOGREL BISULFATE 75 MG TAB PO SCH (08:23)
[2020-09-15] MEDS: GLIPIZIDE 5 MG TABLET PO SCH (08:23)
[2020-09-15] MEDS: FERROUS GLUCONATE 325 MG TABLET PO SCH (08:23)
[2020-09-15] MEDS: ASCORBIC ACID 500 MG TAB PO SCH (08:23)
[2020-09-15] MEDS: PANTOPRAZOLE SODIUM 40 MG TABLET.DR PO SCH (08:23)
[2020-09-15] MEDS: BUMETANIDE 1 MG TAB PO SCH ×2 (08:24→20:49)
[2020-09-15] MEDS: **HM**Cholecalciferol (Vitamin D3) (Vitamin D3) 25 MCG PO SCH (09:00)
[2020-09-15] MEDS: CLINDAMYCIN HCL 150 MG CAP PO SCH ×2 (09:05→17:03)
[2020-09-15] MEDS: ACETAMINOPHEN-CODEINE 300/30MG TAB PO PRN ×2 (09:12→17:11)
[2020-09-15] MEDS: METOPROLOL SUCCINATE 12.5 MG PO SCH (10:47)
[2020-09-15 14:41] LABS: HEMATOCRIT 22.7 % (42-54); MEAN CORPUSCULAR HEMOGLOBIN 29.8 pg (27.0-33.0); MEAN CORPUSCULAR HGB CONC 32.2 g/dL (32.0-36.0); MEAN CORPUSCULAR VOLUME 92.7 fL (79-99); RED BLOOD CELL COUNT(AUTO) 2.45 MIL/uL (4.50-6.20); RED CELL DISTRIBUTION WIDTH 15.4 % (11.0-15.5); WHITE BLOOD COUNT (AUTO) 7.2 K/uL (4.8-10.8)
[2020-09-15] MEDS ORDERED: PHARMACY COMMUNICATION MISC SCH ×2 (15:45→16:45)
[2020-09-15] MEDS: TAMSULOSIN HCL 0.4 MG CAP.ER.24H PO SCH (20:48)
[2020-09-15] MEDS: ATORVASTATIN CALCIUM 40 MG TABLET PO SCH (20:49)
[2020-09-15] MEDS ORDERED: ALBUMIN (HUMAN) 25% 200 ML IV PRN (22:00)
[2020-09-16] VITALS (11 sets, daily range): BP systolic 97–146; BP diastolic 48–62
[2020-09-16] MEDS: ALBUTEROL SULFATE 0.083% 2.5 MG/3 ML INH IH SCH ×5 (00:12→23:17)
[2020-09-16] MEDS: CLINDAMYCIN HCL 150 MG CAP PO SCH ×3 (00:13→16:40)
[2020-09-16] MEDS: POTASSIUM CHLORIDE 20MEQ/100ML 100 ML IV PRN (01:38)
[2020-09-16] MEDS: LEVOTHYROXINE 50 MCG TABLET PO SCH (05:28)
[2020-09-16] MEDS: INSULIN HUMULIN R 100 UNIT/ML 3ML SQ SCH ×4 (05:31→21:00)
[2020-09-16 05:45] LABS: BASOPHILS % (AUTO) 0.6 % (0.0-5.0); EOSINOPHILS % (AUTO) 1.3 % (0.0-8.0); HEMATOCRIT 23.2 % (42-54); LYMPHOCYTES % (AUTO) 14.7 % (21.0-51.0); MEAN CORPUSCULAR HEMOGLOBIN 30.1 pg (27.0-33.0); MEAN CORPUSCULAR HGB CONC 32.3 g/dL (32.0-36.0); MEAN CORPUSCULAR VOLUME 93.2 fL (79-99); MONOCYTES % (AUTO) 12.5 % (3.0-13.0); NEUTROPHILS % (AUTO) 70.5 % (40.0-77.0); PLATELET COUNT (AUTO) 112 K/uL (130-400); RED BLOOD CELL COUNT(AUTO) 2.49 MIL/uL (4.50-6.20); RED CELL DISTRIBUTION WIDTH 15.3 % (11.0-15.5); WHITE BLOOD COUNT (AUTO) 7.2 K/uL (4.8-10.8)
[2020-09-16 06:04] LABS: CREATININE 2.5 mg/dL (0.5-1.5); POTASSIUM 4.1 mmol/L (3.5-5.1)
[2020-09-16] MEDS: BUDESONIDE 0.5 MG/2 ML INH IH SCH ×2 (06:34→18:52)
[2020-09-16] MEDS: GLIPIZIDE 5 MG TABLET PO SCH (08:00)
[2020-09-16] MEDS: FERROUS GLUCONATE 325 MG TABLET PO SCH (08:42)
[2020-09-16] MEDS: ASCORBIC ACID 500 MG TAB PO SCH (08:43)
[2020-09-16] MEDS: BUMETANIDE 1 MG TAB PO SCH ×2 (08:43→21:13)
[2020-09-16] MEDS: PANTOPRAZOLE SODIUM 40 MG TABLET.DR PO SCH (08:43)
[2020-09-16] MEDS: **HM**Cholecalciferol (Vitamin D3) (Vitamin D3) 25 MCG PO SCH (08:52)
[2020-09-16] MEDS: CLOPIDOGREL BISULFATE 75 MG TAB PO SCH (08:53)
[2020-09-16] MEDS: METOPROLOL SUCCINATE 12.5 MG PO SCH (08:53)
[2020-09-16] MEDS ORDERED: ALBUMIN (HUMAN) 25% 200 ML IV SCH (10:45)
[2020-09-16 13:52] LABS: APPEARANCE BODY FLUID BLOODY (CLEAR); COLOR,BODY FLUID RED (LT YELLOW); SPECIMENTYPE,BODY FLUID ASCITES; TOTAL VOLUME,BODY FLUID 4200 mL
[2020-09-16 13:54] LABS: BODY FLUID RBC 19000 /cu. mm.; BODY FLUID WBC 435 /cu. mm.
[2020-09-16 14:01] LABS: BF LYMPHOCYTE 73 %; BF MONOCYTE 5 %
[2020-09-16] MEDS: TAMSULOSIN HCL 0.4 MG CAP.ER.24H PO SCH (21:12)
[2020-09-16] MEDS: ATORVASTATIN CALCIUM 40 MG TABLET PO SCH (21:12)
[2020-09-17] VITALS: BP 98/56
[2020-09-17] MEDS: CLINDAMYCIN HCL 150 MG CAP PO SCH ×3 (00:48→07:27)
[2020-09-17 04:10] VITALS: BP 96/52
[2020-09-17 05:33] LABS: HEMATOCRIT 21.8 % (42-54); MEAN CORPUSCULAR HEMOGLOBIN 30.3 pg (27.0-33.0); MEAN CORPUSCULAR VOLUME 91.6 fL (79-99); RED BLOOD CELL COUNT(AUTO) 2.38 MIL/uL (4.50-6.20); RED CELL DISTRIBUTION WIDTH 15.3 % (11.0-15.5); WHITE BLOOD COUNT (AUTO) 6.7 K/uL (4.8-10.8)
[2020-09-17 05:53] LABS: CREATININE 2.6 mg/dL (0.5-1.5); POTASSIUM 4.2 mmol/L (3.5-5.1)
[2020-09-17] MEDS: LEVOTHYROXINE 50 MCG TABLET PO SCH (05:58)
[2020-09-17] MEDS: ALBUTEROL SULFATE 0.083% 2.5 MG/3 ML INH IH SCH (06:19)
[2020-09-17] MEDS: BUDESONIDE 0.5 MG/2 ML INH IH SCH (06:20)
[2020-09-17] MEDS: INSULIN HUMULIN R 100 UNIT/ML 3ML SQ SCH (07:07)
[2020-09-17] MEDS: CLOPIDOGREL BISULFATE 75 MG TAB PO SCH (07:27)
[2020-09-17] MEDS: PANTOPRAZOLE SODIUM 40 MG TABLET.DR PO SCH (07:27)
[2020-09-17] MEDS: BUMETANIDE 1 MG TAB PO SCH (07:27)
[2020-09-17] MEDS: ASCORBIC ACID 500 MG TAB PO SCH (07:27)
[2020-09-17] MEDS: FERROUS GLUCONATE 325 MG TABLET PO SCH (07:27)
[2020-09-17] MEDS: GLIPIZIDE 5 MG TABLET PO SCH (07:27)
[2020-09-17] MEDS: **HM**Cholecalciferol (Vitamin D3) (Vitamin D3) 25 MCG PO SCH (07:28)
[2020-09-17] MEDS: METOPROLOL SUCCINATE 12.5 MG PO SCH ×2 (07:28→09:00)
[2020-09-17 08:00] VITALS: BP 99/44
[2020-09-17] MEDS ORDERED: CLIN300C3 PO (09:51)
[2020-09-17 10:55] VITALS: BP 100/51
== END 2020-09-17 10:54 | disposition home or self-care (01) | DRG 226 ==
LOC: DAH 07:43 → OBSVTOIN 07:44 → DAH 07:44 → DAHIP 07:44 → 4DH 16:54
PROVIDERS: ADMIT Internal Medicine; ATTEND Internal Medicine
PROC: 0JH609Z Insertion of Cardiac Resynchronization Defibrillator Pulse Generator into Chest Subcutaneous Tissue and Fascia, Open Approach (ICD-10-PCS; principal; 2020-09-13)
PROC: 02HL3KZ Insertion of Defibrillator Lead into Left Ventricle, Percutaneous Approach (ICD-10-PCS; 2020-09-13)
PROC: 02HK3KZ Insertion of Defibrillator Lead into Right Ventricle, Percutaneous Approach (ICD-10-PCS; 2020-09-13)
PROC: 0JPT0PZ Removal of Cardiac Rhythm Related Device from Trunk Subcutaneous Tissue and Fascia, Open Approach (ICD-10-PCS; 2020-09-13)
PROC: 02PA3MZ Removal of Cardiac Lead from Heart, Percutaneous Approach (ICD-10-PCS; 2020-09-13)
PROC: B51VYZZ Fluoroscopy of Other Veins using Other Contrast (ICD-10-PCS; 2020-09-13)
PROC: 02WA0MZ Revision of Cardiac Lead in Heart, Open Approach (ICD-10-PCS; 2020-09-14)
PROC: B51VYZZ Fluoroscopy of Other Veins using Other Contrast (ICD-10-PCS; 2020-09-14)
PROC: 0W9G3ZZ Drainage of Peritoneal Cavity, Percutaneous Approach (ICD-10-PCS; 2020-09-16)
DX: I13.0 Hypertensive heart and chronic kidney disease with heart failure and stage 1 through stage 4 chronic kidney disease, or unspecified chronic kidney disease (principal); I50.23 Acute on chronic systolic (congestive) heart failure; R18.8 Other ascites; I48.21 Permanent atrial fibrillation; I42.0 Dilated cardiomyopathy; I44.7 Left bundle-branch block, unspecified; N18.30 Chronic kidney disease, stage 3 unspecified; I48.91 Unspecified atrial fibrillation; J44.9 Chronic obstructive pulmonary disease, unspecified; I25.5 Ischemic cardiomyopathy; I25.10 Atherosclerotic heart disease of native coronary artery without angina pectoris; E78.5 Hyperlipidemia, unspecified; E11.51 Type 2 diabetes mellitus with diabetic peripheral angiopathy without gangrene; E11.42 Type 2 diabetes mellitus with diabetic polyneuropathy; E11.22 Type 2 diabetes mellitus with diabetic chronic kidney disease; D69.6 Thrombocytopenia, unspecified; D64.9 Anemia, unspecified; I49.5 Sick sinus syndrome; Z95.5 Presence of coronary angioplasty implant and graft; Z95.0 Presence of cardiac pacemaker; Z86.19 Personal history of other infectious and parasitic diseases; Z79.899 Other long term (current) drug therapy; Z79.01 Long term (current) use of anticoagulants; Z90.49 Acquired absence of other specified parts of digestive tract; Z88.1 Allergy status to other antibiotic agents; Z88.2 Allergy status to sulfonamides; Z88.8 Allergy status to other drugs, medicaments and biological substances
CPT/HCPCS: 33216; 33225; 33226; 33233; 33249; 36415; 49083; 71045; 71250; 76705; 80048; 82948; 83880; 85025; 85027; 85610; 85730; 86850; 86900; 86901; 87071; 87205; 89051; 93005; 94640; 94664; 96365; 99156; 99157; A4606; C1769; G0378; J0690; J2175; J2250; J3370; J3480; J3490; J7030; P9046; Q9967

== ENCOUNTER 2020-09-27 15:44 | Inpatient (IN) | payer OTHER ==
[~2020-09-27] VITALS: Ht 170.2 cm; Wt 74.1 kg
[~2020-09-27 15:44] MED LIST changes: +BUDE10.2 IH; -BUME1TAB7 PO; +BUME2TAB5 PO; +CLIN300C3 PO; +FERR324T PO
[2020-09-27 16:35] LABS: BASOPHILS % (AUTO) 0.7 % (0.0-5.0); EOSINOPHILS % (AUTO) 1.8 % (0.0-8.0); HEMATOCRIT 24.7 % (42-54); LYMPHOCYTES % (AUTO) 13.4 % (21.0-51.0); MEAN CORPUSCULAR HEMOGLOBIN 30.4 pg (27.0-33.0); MEAN CORPUSCULAR HGB CONC 32.4 g/dL (32.0-36.0); MEAN CORPUSCULAR VOLUME 93.9 fL (79-99); MONOCYTES % (AUTO) 10.1 % (3.0-13.0); NEUTROPHILS % (AUTO) 73.7 % (40.0-77.0); PLATELET COUNT (AUTO) 196 K/uL (130-400); RED BLOOD CELL COUNT(AUTO) 2.63 MIL/uL (4.50-6.20); RED CELL DISTRIBUTION WIDTH 16.8 % (11.0-15.5); WHITE BLOOD COUNT (AUTO) 7.4 K/uL (4.8-10.8)
[2020-09-27 16:45] LABS: CREATININE 2.1 mg/dL (0.5-1.5); POTASSIUM 3.9 mmol/L (3.5-5.1)
[2020-09-27] MEDS: CLOPIDOGREL BISULFATE 75 MG TAB PO SCH (16:47)
[2020-09-27] MEDS: FERROUS GLUCONATE 325 MG TABLET PO SCH (16:48)
[2020-09-27 16:50] LABS: ALBUMIN 3.2 g/dL (3.5-5.0); BILIRUBIN,TOTAL 1.1 mg/dL (0.2-1.0); TOTAL PROTEIN, SERUM 7.7 g/dL (6.0-8.3)
[2020-09-27] MEDS: METOCLOPRAMIDE 5 MG TABLET PO SCH (17:00)
[2020-09-27 17:06] LABS: B-TYPE NATRIURETIC PEPTIDE 769 pg/mL (0-100)
[2020-09-27] MEDS ORDERED: BUMETANIDE 0.25 MG/ML 4 ML VIAL ONE (17:32)
[2020-09-27] MEDS ORDERED: ATORVASTATIN CALCIUM 40 MG TABLET ONE (20:20)
[2020-09-27] MEDS ORDERED: METOCLOPRAMIDE 5 MG TABLET ONE (20:20)
[2020-09-27] MEDS ORDERED: METOPROLOL SUCCINATE 50 MG TAB.SR.24H PO ONE (20:21)
[2020-09-27] MEDS: ATORVASTATIN CALCIUM 40 MG TABLET PO SCH (21:00)
[2020-09-27] MEDS: TAMSULOSIN HCL 0.4 MG CAP.ER.24H PO SCH (21:00)
[2020-09-27 22:20] VITALS: BP 104/63
[2020-09-28] MEDS ORDERED: POTASSIUM CHLORIDE 20MEQ/100ML 100 ML IV PRN
[2020-09-28] MEDS ORDERED: POTASSIUM CHLORIDE 10% ELIXIR 20 MEQ/15 ML UDCUP PO PRN
[2020-09-28] MEDS ORDERED: LIDOCAINE HCL-MPF 1% 2ML VIAL IJ PRN
[2020-09-28] MEDS ORDERED: POTASSIUM CHLORIDE 20 MEQ ERTAB PO PRN
--- NOTE | 2020-09-28 00:28 | NUR ---
I spoke to daughter Monserrat asked if she could please bring a copy of the DNR, living will, and medical power of defense attorney so we can have one in the chart. Also asked if the medications patient is taking can be brought in the bottles. She said she would bring them by tomorrow. Patient continues in TELLER HEAD 60.
[2020-09-28 03:57] VITALS: BP 119/40
[2020-09-28 08:29] VITALS: BP 115/53
[2020-09-28] MEDS: CLOPIDOGREL BISULFATE 75 MG TAB PO SCH (09:21)
[2020-09-28] MEDS: METOPROLOL SUCCINATE 50 MG TAB.SR.24H PO SCH (09:21)
[2020-09-28] MEDS: METOCLOPRAMIDE 5 MG TABLET PO SCH ×3 (09:21→17:33)
[2020-09-28] MEDS: FERROUS GLUCONATE 325 MG TABLET PO SCH (09:22)
[2020-09-28] MEDS: GLIPIZIDE XL 5MG TAB PO SCH (09:22)
[2020-09-28] MEDS: BUMETANIDE 0.25 MG/ML 4 ML VIAL IVP SCH ×2 (09:26→19:09)
--- NOTE | 2020-09-28 11:45 | NUR ---
[facility] CM met with pt currently asleep. Called spouse on facesheet Cindy Gentile no answer unable to leave voicemail, called daughter ZAYNAB Sr on facesheet, no answer, left voicemail. Obtained info from previous admissions. Pt is semi-independent prior to admission, lives at home with spouse, daughter lives close by. Patient has oxygen, rollator walker, walker, wheelchair, provider 3x/wk for bathing. Plan for now is to go back home w/spouse. Will reassess once pt stable. CM to continue to follow up. Addendum: 09/28/20 at 1420 by DEVYN WARD LVN Amended: Links added.
[2020-09-28 11:49] VITALS: BP 105/52
[2020-09-28] MEDS: LEVOTHYROXINE 50 MCG TABLET PO SCH (14:37)
[2020-09-28 16:17] VITALS: BP 116/61
[2020-09-28] MEDS: ATORVASTATIN CALCIUM 40 MG TABLET PO SCH (19:09)
[2020-09-28] MEDS: TAMSULOSIN HCL 0.4 MG CAP.ER.24H PO SCH (19:09)
[2020-09-28 20:44] VITALS: BP 104/53
[2020-09-29 00:49] VITALS: BP 107/57
[2020-09-29 03:25] VITALS: BP 112/52
[2020-09-29] MEDS: METOCLOPRAMIDE 5 MG TABLET PO SCH ×2 (05:25→11:57)
[2020-09-29 05:32] LABS: POTASSIUM 3.5 mmol/L (3.5-5.1)
[2020-09-29] MEDS ORDERED: LEVOTHYROXINE 50 MCG TABLET PO SCH (06:30)
--- NOTE | 2020-09-29 07:15 | NUR ---
ASSESSMENT NOTE PT IS AAX3 IN BED VS STABLE, NO SOB, NO CP AND WILL CONTINUE MONITOR
[2020-09-29 08:13] VITALS: BP 126/65
[2020-09-29] MEDS ORDERED: LISI2.5T2 PO (08:31)
[2020-09-29] MEDS: CLOPIDOGREL BISULFATE 75 MG TAB PO SCH (08:50)
[2020-09-29] MEDS: METOPROLOL SUCCINATE 50 MG TAB.SR.24H PO SCH (08:51)
[2020-09-29] MEDS: BUMETANIDE 0.25 MG/ML 4 ML VIAL IVP SCH (08:51)
[2020-09-29] MEDS: FERROUS GLUCONATE 325 MG TABLET PO SCH (08:51)
[2020-09-29] MEDS: GLIPIZIDE XL 5MG TAB PO SCH (08:52)
[2020-09-29 12:33] VITALS: BP 125/54
[2020-09-29] MEDS: LEVOTHYROXINE 50 MCG TABLET PO SCH (14:02)
--- NOTE | 2020-09-29 16:40 | NUR ---
[facility] CONSULT Patient assessed by W[facility] HEALING [facility] team. See Inpatient Wound Assessment. Assessment and recommendations discussed with primary nurse. Orders entered. Education provided. Addendum: 09/29/20 at 1641 by ZEYAD ONEILL LVN LVN W Amended: Links added.
[2020-09-29 17:18] VITALS: BP 124/57
--- NOTE | 2020-09-29 18:33 | NUR ---
D/C PT AAOX3 LEFT VIA WHEELCHAIR IN PVT CAR. PT HAD NO SOB, NO CP NO EDEMA. PT WAS GIVEN D/C INSTRUCTIONS ALONG WITH F/U APPT WITH PRIMARY AND DR. KAT. RX WAS ALSO GIVEN TO PATIENT. NO COMPLICATIONS UPON D/C
--- NOTE | 2020-09-30 11:48 | NUR ---
Transitional Care - Post Discharge Note Spoke with patient's daughter/POA at number listed. As per daughter, he is doing well. She states the patient was discharged in the evening, and was unable to drop off prescription or pick pack worker prescription yesterday. She has dropped off prescription this AM, and will pick medication this afternoon once available. The patient's daughter is aware of his upcoming appointments and will keep them. Addendum: 09/30/20 at 1155 by NORM BAHENA Amended: Links added.
== END 2020-09-29 17:00 | disposition home or self-care (01) | DRG 291 ==
LOC: EDH 15:44 → EDHIP 15:45 → 4AH 21:58
PROVIDERS: ADMIT Internal Medicine Cardiovascular Disease; ATTEND Internal Medicine Cardiovascular Disease
DX: I13.0 Hypertensive heart and chronic kidney disease with heart failure and stage 1 through stage 4 chronic kidney disease, or unspecified chronic kidney disease (principal); I50.23 Acute on chronic systolic (congestive) heart failure; N18.4 Chronic kidney disease, stage 4 (severe); R18.8 Other ascites; I25.5 Ischemic cardiomyopathy; E11.22 Type 2 diabetes mellitus with diabetic chronic kidney disease; I48.0 Paroxysmal atrial fibrillation; I25.10 Atherosclerotic heart disease of native coronary artery without angina pectoris; E78.5 Hyperlipidemia, unspecified; L89.152 Pressure ulcer of sacral region, stage 2; I45.9 Conduction disorder, unspecified; Z95.0 Presence of cardiac pacemaker; Z88.8 Allergy status to other drugs, medicaments and biological substances; Z95.1 Presence of aortocoronary bypass graft
CPT/HCPCS: 36415; 71045; 80048; 80053; 82948; 83880; 85025; 93005; 93880; 93971; G0378; J3490

== ENCOUNTER 2020-10-31 15:58 | Inpatient (IN) | payer OTHER ==
[~2020-10-31] VITALS: Ht 175.3 cm; Wt 69.9 kg
[~2020-10-31 15:58] MED LIST changes: -CLIN300C3 PO; +LISI2.5T13 PO
[2020-10-31 16:15] LABS: APPEARANCE,URINE Clear (CLEAR); BILIRUBIN,URINE Negative (NEGATIVE); COLOR,URINE Yellow (YELLOW); GLUCOSE, URINE (UA) Negative (NEGATIVE); KETONES,URINE Negative (NEGATIVE); LEUKOCYTE ESTERASE ,URINE Moderate (NEGATIVE); NITRATE,URINE Negative (NEGATIVE); OCCULT BLOOD,URINE Negative (NEGATIVE); PROTEIN,URINE Negative (NEGATIVE); UROBILINOGEN,URINE 0.2 mg/dL (0.2-1.0)
[2020-10-31 16:25] LABS: BASOPHILS % (AUTO) 0.7 % (0.0-5.0); EOSINOPHILS % (AUTO) 2.8 % (0.0-8.0); HEMATOCRIT 25.7 % (42-54); LYMPHOCYTES % (AUTO) 23.4 % (21.0-51.0); MEAN CORPUSCULAR HEMOGLOBIN 30.8 pg (27.0-33.0); MEAN CORPUSCULAR HGB CONC 32.7 g/dL (32.0-36.0); MEAN CORPUSCULAR VOLUME 94.1 fL (79-99); MONOCYTES % (AUTO) 15.3 % (3.0-13.0); NEUTROPHILS % (AUTO) 57.6 % (40.0-77.0); PLATELET COUNT (AUTO) 116 K/uL (130-400); RED BLOOD CELL COUNT(AUTO) 2.73 MIL/uL (4.50-6.20); RED CELL DISTRIBUTION WIDTH 15.5 % (11.0-15.5); WHITE BLOOD COUNT (AUTO) 4.6 K/uL (4.8-10.8)
[2020-10-31 16:44] LABS: CREATININE 2.4 mg/dL (0.5-1.5); POTASSIUM 3.8 mmol/L (3.5-5.1)
[2020-10-31 16:48] LABS: INR 1.22 (0.85-1.15); PROTHROMBIN TIME 12.8 SEC (9.6-11.6)
[2020-10-31 16:49] LABS: ALBUMIN 3.2 g/dL (3.5-5.0); BILIRUBIN,TOTAL 0.5 mg/dL (0.2-1.0); PARTIAL THROMBOPLASTIN TIME 24.3 SEC (26.3-35.5); TOTAL PROTEIN, SERUM 7.7 g/dL (6.0-8.3)
[2020-10-31 16:56] LABS: BACTERIA,URINE Rare /HPF (None Seen); RBC,URINE 0-1 /HPF (0-1); SQUAMOUS EPITHELIAL CELL,UR Rare /HPF (0-2); TRANSITIONAL EPI CELLS,URINE Rare /HPF (None Seen)
[2020-10-31] MEDS ORDERED: DiphenhydrAMINE HCL 50 MG/ML VIAL IV PRN (18:15)
[2020-10-31] MEDS ORDERED: NITROGLYCERIN 0.4 MG SL TAB SL PRN (18:15)
[2020-10-31] MEDS ORDERED: MAG/ALUM/SIMETH 30 ML UDCUP PO PRN (18:15)
[2020-10-31] MEDS ORDERED: ONDANSETRON 4MG INJ IV PRN (18:15)
[2020-10-31] MEDS ORDERED: ACETAMINOPHEN 325 MG TAB PO PRN (18:15)
[2020-10-31] MEDS ORDERED: LACTULOSE 20 GM/30 ML UDCUP PO PRN (18:15)
[2020-10-31] MEDS ORDERED: MORPHINE 2 MG SYG IV PRN (18:15)
[2020-10-31 18:38] LABS: HEMOGLOBIN A1C 6.6 % (4.0-6.0)
[2020-11-01 05:10] VITALS: BP 138/49
[2020-11-01] MEDS ORDERED: METO5 PO (05:45)
[2020-11-01] MEDS ORDERED: METO2.5T2 PO (05:45)
[2020-11-01 06:16] LABS: EOSINOPHILS % (AUTO) 3.4 % (0.0-8.0); HEMATOCRIT 25.4 % (42-54); LYMPHOCYTES % (AUTO) 26.4 % (21.0-51.0); MEAN CORPUSCULAR HEMOGLOBIN 31.1 pg (27.0-33.0); MEAN CORPUSCULAR HGB CONC 33.1 g/dL (32.0-36.0); MEAN CORPUSCULAR VOLUME 94.1 fL (79-99); MONOCYTES % (AUTO) 15.3 % (3.0-13.0); NEUTROPHILS % (AUTO) 53.7 % (40.0-77.0); PLATELET COUNT (AUTO) 119 K/uL (130-400); RED CELL DISTRIBUTION WIDTH 15.3 % (11.0-15.5); WHITE BLOOD COUNT (AUTO) 4.8 K/uL (4.8-10.8)
[2020-11-01 06:40] LABS: CREATININE 2.2 mg/dL (0.5-1.5); POTASSIUM 3.5 mmol/L (3.5-5.1)
[2020-11-01 08:04] VITALS: BP 122/47
[2020-11-01] MEDS ORDERED: FLUTICASONE/VILANTEROL 1 EACH BLST.W.DEV IH PRN (08:15)
[2020-11-01] MEDS: CHOLECALCIFEROL 25 MCG PO SCH (09:00)
[2020-11-01] MEDS: ASCORBIC ACID 500 MG TAB PO SCH (09:17)
[2020-11-01] MEDS: LEVOTHYROXINE 50 MCG TABLET PO SCH (09:17)
[2020-11-01] MEDS: METOPROLOL SUCCINATE 50 MG TAB.SR.24H PO SCH (09:17)
[2020-11-01] MEDS: FAMOTIDINE 20MG TAB PO SCH (09:17)
[2020-11-01] MEDS: FERROUS GLUCONATE TABLET PO SCH (09:17)
[2020-11-01] MEDS: PANTOPRAZOLE 40 MG TAB DR PO SCH (09:17)
[2020-11-01] MEDS: BUMETANIDE 1 MG TAB PO SCH ×2 (09:18→20:04)
[2020-11-01 11:06] VITALS: BP 141/45
[2020-11-01] MEDS: METOCLOPRAMIDE 5 MG TABLET PO SCH ×2 (12:09→18:11)
[2020-11-01 16:31] VITALS: BP 108/54
[2020-11-01 19:54] VITALS: BP 112/44
[2020-11-01] MEDS: ATORVASTATIN 40 MG TABLET PO SCH (20:04)
[2020-11-01] MEDS: TAMSULOSIN HCL 0.4 MG CAP.ER.24H PO SCH (20:04)
[2020-11-01] MEDS: LISINOPRIL 2.5 MG TABLET PO SCH (20:04)
[2020-11-01 23:32] VITALS: BP 121/44
[2020-11-02 04:00] VITALS: BP 110/44
[2020-11-02 05:29] LABS: EOSINOPHILS % (AUTO) 2.3 % (0.0-8.0); HEMATOCRIT 26.5 % (42-54); LYMPHOCYTES % (AUTO) 26.1 % (21.0-51.0); MEAN CORPUSCULAR HEMOGLOBIN 30.5 pg (27.0-33.0); MEAN CORPUSCULAR HGB CONC 32.8 g/dL (32.0-36.0); MONOCYTES % (AUTO) 14.3 % (3.0-13.0); NEUTROPHILS % (AUTO) 56.1 % (40.0-77.0); PLATELET COUNT (AUTO) 126 K/uL (130-400); RED BLOOD CELL COUNT(AUTO) 2.85 MIL/uL (4.50-6.20); RED CELL DISTRIBUTION WIDTH 14.9 % (11.0-15.5); WHITE BLOOD COUNT (AUTO) 4.8 K/uL (4.8-10.8)
[2020-11-02] MEDS: METOCLOPRAMIDE 5 MG TABLET PO SCH ×3 (05:42→16:54)
[2020-11-02] MEDS: LEVOTHYROXINE 50 MCG TABLET PO SCH (05:42)
[2020-11-02] MEDS: PANTOPRAZOLE 40 MG TAB DR PO SCH (05:42)
[2020-11-02 06:06] LABS: ALBUMIN 3.1 g/dL (3.5-5.0); BILIRUBIN,TOTAL 0.6 mg/dL (0.2-1.0); CREATININE 2.2 mg/dL (0.5-1.5); MAGNESIUM 2.2 mg/dL (1.80-2.40); PHOSPHORUS 3.8 mg/dL (2.5-4.9); POTASSIUM 3.9 mmol/L (3.5-5.1); TOTAL PROTEIN, SERUM 7.7 g/dL (6.0-8.3)
[2020-11-02 08:40] VITALS: BP 140/48
[2020-11-02] MEDS: CHOLECALCIFEROL 25 MCG PO SCH (09:00)
[2020-11-02] MEDS: ASCORBIC ACID 500 MG TAB PO SCH (10:00)
[2020-11-02] MEDS: FERROUS GLUCONATE TABLET PO SCH (10:00)
[2020-11-02] MEDS: FAMOTIDINE 20MG TAB PO SCH (10:00)
[2020-11-02] MEDS: METOPROLOL SUCCINATE 50 MG TAB.SR.24H PO SCH (10:01)
[2020-11-02] MEDS: BUMETANIDE 1 MG TAB PO SCH ×2 (10:02→21:09)
[2020-11-02 13:24] LABS: APPEARANCE BODY FLUID SLIGHTLY CLOUDY (CLEAR); COLOR,BODY FLUID YELLOW (LT YELLOW); SPECIMENTYPE,BODY FLUID PLEURAL; TOTAL VOLUME,BODY FLUID 1500 mL
[2020-11-02 13:25] LABS: BODY FLUID RBC 517 /cu. mm.; BODY FLUID WBC 247 /cu. mm.
[2020-11-02 13:27] LABS: BF LYMPHOCYTE 65 %; BF MONOCYTE 29 %
[2020-11-02] MEDS: ZOSYN 3.375GM+NS 50ML 50 ML IV SCH ×2 (14:08→21:09)
[2020-11-02 16:11] VITALS: BP 106/53
[2020-11-02 20:43] VITALS: BP 110/62
[2020-11-02] MEDS: TAMSULOSIN HCL 0.4 MG CAP.ER.24H PO SCH (21:09)
[2020-11-02] MEDS: ATORVASTATIN 40 MG TABLET PO SCH (21:09)
[2020-11-02] MEDS: LISINOPRIL 2.5 MG TABLET PO SCH (21:09)
[2020-11-02 23:57] VITALS: BP 101/56
[2020-11-03] MEDS: ZOSYN 3.375GM+NS 50ML 50 ML IV SCH (03:34)
[2020-11-03 04:00] VITALS: BP 136/66
[2020-11-03 05:16] LABS: HEMATOCRIT 24.7 % (42-54); MEAN CORPUSCULAR HEMOGLOBIN 30.7 pg (27.0-33.0); MEAN CORPUSCULAR HGB CONC 33.6 g/dL (32.0-36.0); MEAN CORPUSCULAR VOLUME 91.5 fL (79-99); RED BLOOD CELL COUNT(AUTO) 2.7 MIL/uL (4.50-6.20); RED CELL DISTRIBUTION WIDTH 14.9 % (11.0-15.5); WHITE BLOOD COUNT (AUTO) 5.6 K/uL (4.8-10.8)
[2020-11-03] MEDS: LEVOTHYROXINE 50 MCG TABLET PO SCH (05:37)
[2020-11-03 05:42] LABS: CREATININE 2.6 mg/dL (0.5-1.5); POTASSIUM 3.6 mmol/L (3.5-5.1)
[2020-11-03 08:23] VITALS: BP 106/52
[2020-11-03] MEDS: CHOLECALCIFEROL 25 MCG PO SCH (09:00)
[2020-11-03] MEDS: FAMOTIDINE 20MG TAB PO SCH (10:25)
[2020-11-03] MEDS: METOCLOPRAMIDE 5 MG TABLET PO SCH ×3 (10:26→16:58)
[2020-11-03] MEDS: BUMETANIDE 1 MG TAB PO SCH ×2 (10:26→19:58)
[2020-11-03] MEDS: ASCORBIC ACID 500 MG TAB PO SCH (10:26)
[2020-11-03] MEDS: METOPROLOL SUCCINATE 50 MG TAB.SR.24H PO SCH (10:26)
[2020-11-03] MEDS: CLOPIDOGREL 75MG TAB PO SCH (10:27)
[2020-11-03] MEDS: FERROUS GLUCONATE TABLET PO SCH (10:27)
[2020-11-03] MEDS: PANTOPRAZOLE 40 MG TAB DR PO SCH (10:29)
[2020-11-03 10:38] LABS: % IRON SATURATION 14.1 % (30-44)
[2020-11-03 11:35] VITALS: BP 120/67
[2020-11-03 16:24] VITALS: BP 115/55
[2020-11-03] MEDS ORDERED: CEFTRIAXONE 1G VIAL ONE (18:42)
[2020-11-03] MEDS: CEFTRIAXONE 1G VIAL IV SCH (18:46)
[2020-11-03] MEDS: TAMSULOSIN HCL 0.4 MG CAP.ER.24H PO SCH (19:58)
[2020-11-03] MEDS: ATORVASTATIN 40 MG TABLET PO SCH (19:58)
[2020-11-03] MEDS: LISINOPRIL 2.5 MG TABLET PO SCH (19:59)
[2020-11-03 20:48] VITALS: BP 100/48
[2020-11-03 23:48] VITALS: BP 132/73
[2020-11-04 04:26] VITALS: BP 101/48
[2020-11-04 05:19] LABS: BASOPHILS % (AUTO) 0.5 % (0.0-5.0); EOSINOPHILS % (AUTO) 2.4 % (0.0-8.0); HEMATOCRIT 24.5 % (42-54); LYMPHOCYTES % (AUTO) 19.1 % (21.0-51.0); MEAN CORPUSCULAR HEMOGLOBIN 30.5 pg (27.0-33.0); MEAN CORPUSCULAR HGB CONC 33.5 g/dL (32.0-36.0); MEAN CORPUSCULAR VOLUME 91.1 fL (79-99); MONOCYTES % (AUTO) 13.9 % (3.0-13.0); NEUTROPHILS % (AUTO) 63.6 % (40.0-77.0); PLATELET COUNT (AUTO) 126 K/uL (130-400); RED BLOOD CELL COUNT(AUTO) 2.69 MIL/uL (4.50-6.20); RED CELL DISTRIBUTION WIDTH 14.6 % (11.0-15.5); WHITE BLOOD COUNT (AUTO) 6.6 K/uL (4.8-10.8)
[2020-11-04] MEDS: LEVOTHYROXINE 50 MCG TABLET PO SCH (05:22)
[2020-11-04 05:39] LABS: CREATININE 2.6 mg/dL (0.5-1.5); PHOSPHORUS 4.5 mg/dL (2.5-4.9); POTASSIUM 3.4 mmol/L (3.5-5.1)
[2020-11-04] MEDS: FAMOTIDINE 20MG TAB PO SCH (07:52)
[2020-11-04] MEDS: CEFTRIAXONE 1G VIAL IV SCH (07:52)
[2020-11-04] MEDS: METOPROLOL SUCCINATE 50 MG TAB.SR.24H PO SCH (07:53)
[2020-11-04] MEDS: METOCLOPRAMIDE 5 MG TABLET PO SCH ×2 (07:53→10:56)
[2020-11-04] MEDS: PANTOPRAZOLE 40 MG TAB DR PO SCH (07:53)
[2020-11-04] MEDS: FERROUS GLUCONATE TABLET PO SCH (07:53)
[2020-11-04] MEDS: CLOPIDOGREL 75MG TAB PO SCH (07:54)
[2020-11-04] MEDS: BUMETANIDE 1 MG TAB PO SCH (07:56)
[2020-11-04] MEDS: ASCORBIC ACID 500 MG TAB PO SCH (07:57)
[2020-11-04] MEDS: CHOLECALCIFEROL 25 MCG PO SCH (07:59)
[2020-11-04 08:00] VITALS: BP 124/59
[2020-11-04] MEDS ORDERED: CEFTRIAXONE 1G VIAL IV SCH (09:00)
[2020-11-04] MEDS ORDERED: COMPOUND IV MISC 1 EACH IVSOLN MISC PRN (09:00)
[2020-11-04] MEDS ORDERED: IRON SUCROSE COMPLEX 100 MG in 0.9%NACL 50ML 50 ML IV SCH (09:00)
[2020-11-04] MEDS ORDERED: EPOETIN ALFA-EPBX (ESRD) 10,000 UNIT/ML VIAL SQ SCH (09:00)
[2020-11-04] MEDS ORDERED: KCL 20 MEQ ERTAB PO SCH (10:15)
[2020-11-04 11:37] VITALS: BP 124/59
[2020-11-04 16:03] VITALS: BP 108/53
== END 2020-11-04 17:45 | disposition home or self-care (01) | DRG 292 ==
LOC: EDH 15:58 → EDHIP 18:13 → 3AH 11-01 01:19
PROVIDERS: ADMIT Internal Medicine; ATTEND Internal Medicine
PROC: 0W993ZZ Drainage of Right Pleural Cavity, Percutaneous Approach (ICD-10-PCS; principal; 2020-11-02)
DX: I13.0 Hypertensive heart and chronic kidney disease with heart failure and stage 1 through stage 4 chronic kidney disease, or unspecified chronic kidney disease (principal); N17.9 Acute kidney failure, unspecified; J90 Pleural effusion, not elsewhere classified; N39.0 Urinary tract infection, site not specified; I42.9 Cardiomyopathy, unspecified; J44.9 Chronic obstructive pulmonary disease, unspecified; N18.9 Chronic kidney disease, unspecified; N40.0 Benign prostatic hyperplasia without lower urinary tract symptoms; E11.22 Type 2 diabetes mellitus with diabetic chronic kidney disease; E78.5 Hyperlipidemia, unspecified; I48.91 Unspecified atrial fibrillation; Z20.822 Contact with and (suspected) exposure to COVID-19; D64.9 Anemia, unspecified; E78.00 Pure hypercholesterolemia, unspecified; E87.70 Fluid overload, unspecified; Z86.16 Personal history of COVID-19; I95.9 Hypotension, unspecified; N28.1 Cyst of kidney, acquired; B96.4 Proteus (mirabilis) (morganii) as the cause of diseases classified elsewhere; I25.10 Atherosclerotic heart disease of native coronary artery without angina pectoris; Z79.01 Long term (current) use of anticoagulants; Z79.02 Long term (current) use of antithrombotics/antiplatelets; Z79.51 Long term (current) use of inhaled steroids; Z79.84 Long term (current) use of oral hypoglycemic drugs; Z95.1 Presence of aortocoronary bypass graft; Z95.810 Presence of automatic (implantable) cardiac defibrillator; Z99.81 Dependence on supplemental oxygen; Z79.899 Other long term (current) drug therapy; Z88.1 Allergy status to other antibiotic agents; Z88.8 Allergy status to other drugs, medicaments and biological substances; I50.9 Heart failure, unspecified
CPT/HCPCS: 32555; 36415; 71045; 80048; 80053; 81001; 82948; 83036; 83540; 83550; 83615; 83735; 84100; 84157; 84484; 85025; 85027; 85610; 85730; 87077; 87088; 87186; 89051; 93005; C1729; G0378; J0696; J1756; J2543; U0003

== ENCOUNTER → 2021-01-03 | Outpatient (CLI) | payer OTHER ==
[~2021-01-03] MED LIST changes: +ALBUMIN (HUMAN) 25% 200 ML IV SCH; -LISI2.5T13 PO; +LISI2.5T2 PO; +METO2.5T2 PO; +METO5 PO; +SODIUM BICARB 50MEQ 50ML VIAL 50 ML ONE
[2021-01-03 11:05] LABS: INR 1.2 (0.85-1.15); PROTHROMBIN TIME 12.9 SEC (9.6-11.6)
[2021-01-03 11:06] LABS: PARTIAL THROMBOPLASTIN TIME 26.5 SEC (26.3-35.5)
[2021-01-03 13:44] LABS: APPEARANCE BODY FLUID CLOUDY (CLEAR); COLOR,BODY FLUID DARK YELLOW (LT YELLOW); SPECIMENTYPE,BODY FLUID ASCITES; TOTAL VOLUME,BODY FLUID 5500 mL
[2021-01-03 13:45] LABS: BODY FLUID RBC 325 /cu. mm.; BODY FLUID WBC 245 /cu. mm.
[2021-01-03 14:18] LABS: BF LYMPHOCYTE 42 %; BF MONOCYTE 19 %
== END | disposition home or self-care (01) ==
LOC: RAH 09:34
PROVIDERS: ATTEND Nurse Practitioner Family
DX: R18.8 Other ascites (principal); Z79.01 Long term (current) use of anticoagulants
CPT/HCPCS: 36415; 49083; 85610; 85730; 87071; 87205; 89051; A4215; J3490; P9046; 96365

== ENCOUNTER → 2021-01-12 | Outpatient (CLI) | payer OTHER ==
[~2021-01-12] MED LIST changes: -ALBUMIN (HUMAN) 25% 200 ML IV SCH; -SODIUM BICARB 50MEQ 50ML VIAL 50 ML ONE
== END ==
LOC: RAH 07:32
PROVIDERS: ATTEND Nurse Practitioner Family
DX: J90 Pleural effusion, not elsewhere classified (principal); J84.10 Pulmonary fibrosis, unspecified; I51.7 Cardiomegaly; Z95.0 Presence of cardiac pacemaker
CPT/HCPCS: 32555; 71045; A4215

== ENCOUNTER → 2021-01-19 | Outpatient (CLI) | payer OTHER ==
[~2021-01-19] MED LIST changes: +ALBUMIN (HUMAN) 25% 200 ML IV SCH
[2021-01-19 13:53] LABS: APPEARANCE BODY FLUID CLEAR (CLEAR); COLOR,BODY FLUID YELLOW (LT YELLOW); SPECIMENTYPE,BODY FLUID ASCITES; TOTAL VOLUME,BODY FLUID 2900 mL
[2021-01-19 13:54] LABS: BODY FLUID RBC 555 /cu. mm.; BODY FLUID WBC 168 /cu. mm.
[2021-01-19 14:06] LABS: BF LYMPHOCYTE 45 %; BF MESOTHELIAL 52 %
== END | disposition home or self-care (01) ==
LOC: RAH 07:38
PROVIDERS: ATTEND Nurse Practitioner Family
DX: R18.8 Other ascites (principal); Z79.899 Other long term (current) drug therapy
CPT/HCPCS: 49083; 87071; 87205; 89051; A4215; P9046

== ENCOUNTER → 2021-01-26 | Outpatient (CLI) | payer OTHER ==
[~2021-01-26] MED LIST changes: -ALBUMIN (HUMAN) 25% 200 ML IV SCH
== END | disposition home or self-care (01) ==
LOC: RAH 07:31
PROVIDERS: ATTEND Nurse Practitioner Family
DX: J90 Pleural effusion, not elsewhere classified (principal)
CPT/HCPCS: 32555; 71045; A4215

== ENCOUNTER → 2021-02-03 | Outpatient (CLI) | payer OTHER ==
[2021-02-03 08:51] LABS: INR 1.18 (0.85-1.15); PROTHROMBIN TIME 12.7 SEC (9.6-11.6)
[2021-02-03 08:53] LABS: PARTIAL THROMBOPLASTIN TIME 29.1 SEC (26.3-35.5)
== END | disposition home or self-care (01) ==
LOC: RAH 07:38
PROVIDERS: ATTEND Nurse Practitioner Family
DX: R18.8 Other ascites (principal); I50.9 Heart failure, unspecified; Z79.01 Long term (current) use of anticoagulants
CPT/HCPCS: 36415; 49083; 85610; 85730; A4215

== ENCOUNTER → 2021-02-09 | Outpatient (CLI) | payer OTHER | LOC: RAH 09:50 | PROVIDERS: ATTEND Nurse Practitioner Family | DX: J90 Pleural effusion, not elsewhere classified (principal) | CPT/HCPCS: 32555; 71045; A4215 ==

== ENCOUNTER → 2021-02-16 | Outpatient (CLI) | payer OTHER | END | disposition home or self-care (01) | LOC: RAH 07:56 | PROVIDERS: ATTEND Nurse Practitioner Family | DX: R18.8 Other ascites (principal); E11.22 Type 2 diabetes mellitus with diabetic chronic kidney disease; I50.22 Chronic systolic (congestive) heart failure; I13.0 Hypertensive heart and chronic kidney disease with heart failure and stage 1 through stage 4 chronic kidney disease, or unspecified chronic kidney disease; N18.30 Chronic kidney disease, stage 3 unspecified; K21.9 Gastro-esophageal reflux disease without esophagitis; J44.9 Chronic obstructive pulmonary disease, unspecified; I48.91 Unspecified atrial fibrillation; Z87.891 Personal history of nicotine dependence; Z72.89 Other problems related to lifestyle; Z79.899 Other long term (current) drug therapy; Z79.84 Long term (current) use of oral hypoglycemic drugs; Z79.82 Long term (current) use of aspirin; Z98.890 Other specified postprocedural states | CPT/HCPCS: 49083; A4215 ==

== ENCOUNTER → 2021-02-23 | Outpatient (CLI) | payer OTHER | LOC: RAH 07:28 | PROVIDERS: ATTEND Nurse Practitioner Family | DX: J90 Pleural effusion, not elsewhere classified (principal) | CPT/HCPCS: 32555; 71045; A4215 ==

== ENCOUNTER → 2021-03-03 | Outpatient (CLI) | payer OTHER ==
[2021-03-03 09:26] LABS: BASOPHILS % (AUTO) 0.7 % (0.0-5.0); EOSINOPHILS % (AUTO) 1.8 % (0.0-8.0); HEMATOCRIT 28.4 % (42-54); LYMPHOCYTES % (AUTO) 12.4 % (21.0-51.0); MEAN CORPUSCULAR HGB CONC 31.7 g/dL (32.0-36.0); MEAN CORPUSCULAR VOLUME 97.9 fL (79-99); MONOCYTES % (AUTO) 11.8 % (3.0-13.0); NEUTROPHILS % (AUTO) 72.7 % (40.0-77.0); PLATELET COUNT (AUTO) 145 K/uL (130-400); RED CELL DISTRIBUTION WIDTH 14.5 % (11.0-15.5); WHITE BLOOD COUNT (AUTO) 7.1 K/uL (4.8-10.8)
[2021-03-03 09:49] LABS: INR 1.16 (0.85-1.15)
[2021-03-03 10:00] LABS: BILIRUBIN,TOTAL 0.8 mg/dL (0.2-1.0); CREATININE 2.1 mg/dL (0.5-1.5); POTASSIUM 3.8 mmol/L (3.5-5.1); TOTAL PROTEIN, SERUM 7.9 g/dL (6.0-8.3)
[2021-03-03 13:29] LABS: ALBUMIN,BODY FLUID 1.7 g/dL
[2021-03-03 15:45] LABS: APPEARANCE BODY FLUID SLIGHTLY CLOUDY (CLEAR); COLOR,BODY FLUID DARK YELLOW (LT YELLOW); SPECIMENTYPE,BODY FLUID ASCITES; TOTAL VOLUME,BODY FLUID 3100 mL
[2021-03-03 15:46] LABS: BODY FLUID RBC 1550 /cu. mm.; BODY FLUID WBC 46 /cu. mm.
[2021-03-03 16:09] LABS: BF LYMPHOCYTE 47 %; BF MESOTHELIAL 17 %
[2021-03-04 08:14] LABS: HEPATITIS A ANTIBODY IGM Negative (Negative); HEPATITIS B CORE IGM Negative (Negative); HEPATITIS Bs ANTIGEN SCREEN P Negative (Negative)
[2021-03-04 18:09] LABS: ALPHA-1-ANTITRYPSIN 242 mg/dL (101-187)
== END ==
LOC: RAH 07:18
PROVIDERS: ATTEND Nurse Practitioner Family
DX: R18.8 Other ascites (principal)
CPT/HCPCS: 36415; 49083; 80053; 80074; 82042; 82103; 82390; 83516; 84157; 85025; 85610; 86038; 86235; 86255; 86706; 86708; 87071; 87205; 89051; A4215; 86215

== ENCOUNTER → 2021-03-10 | Outpatient (CLI) | payer OTHER | LOC: RAH 09:57 | PROVIDERS: ATTEND Nurse Practitioner Family | DX: J90 Pleural effusion, not elsewhere classified (principal) | CPT/HCPCS: 32555; 71045; A4215 ==

== ENCOUNTER → 2021-03-17 | Outpatient (CLI) | payer OTHER | LOC: RAH 09:43 | PROVIDERS: ATTEND Nurse Practitioner Family | DX: R18.8 Other ascites (principal) | CPT/HCPCS: 49083; A4215 ==

== ENCOUNTER → 2021-03-24 | Outpatient (CLI) | payer OTHER | END | disposition home or self-care (01) | LOC: RAH 09:44 | PROVIDERS: ATTEND Nurse Practitioner Family | DX: J90 Pleural effusion, not elsewhere classified (principal); E11.22 Type 2 diabetes mellitus with diabetic chronic kidney disease; I13.0 Hypertensive heart and chronic kidney disease with heart failure and stage 1 through stage 4 chronic kidney disease, or unspecified chronic kidney disease; N18.4 Chronic kidney disease, stage 4 (severe); D63.1 Anemia in chronic kidney disease; K21.9 Gastro-esophageal reflux disease without esophagitis; I50.22 Chronic systolic (congestive) heart failure; I25.10 Atherosclerotic heart disease of native coronary artery without angina pectoris; I48.91 Unspecified atrial fibrillation; E78.5 Hyperlipidemia, unspecified; J44.9 Chronic obstructive pulmonary disease, unspecified; Z86.73 Personal history of transient ischemic attack (TIA), and cerebral infarction without residual deficits; Z95.5 Presence of coronary angioplasty implant and graft; Z79.01 Long term (current) use of anticoagulants; Z95.1 Presence of aortocoronary bypass graft; Z79.899 Other long term (current) drug therapy; Z98.890 Other specified postprocedural states | CPT/HCPCS: 32555; 71045; A4215 ==

== ENCOUNTER → 2021-03-30 | Outpatient (CLI) | payer OTHER | END | disposition home or self-care (01) | LOC: RAH 08:09 | PROVIDERS: ATTEND Nurse Practitioner Family | DX: R18.8 Other ascites (principal); I25.10 Atherosclerotic heart disease of native coronary artery without angina pectoris; I48.91 Unspecified atrial fibrillation; K21.9 Gastro-esophageal reflux disease without esophagitis; J44.9 Chronic obstructive pulmonary disease, unspecified; E11.22 Type 2 diabetes mellitus with diabetic chronic kidney disease; I13.0 Hypertensive heart and chronic kidney disease with heart failure and stage 1 through stage 4 chronic kidney disease, or unspecified chronic kidney disease; I50.22 Chronic systolic (congestive) heart failure; N18.4 Chronic kidney disease, stage 4 (severe); E11.51 Type 2 diabetes mellitus with diabetic peripheral angiopathy without gangrene; E11.43 Type 2 diabetes mellitus with diabetic autonomic (poly)neuropathy; K31.84 Gastroparesis; D63.8 Anemia in other chronic diseases classified elsewhere; Z86.73 Personal history of transient ischemic attack (TIA), and cerebral infarction without residual deficits; Z87.891 Personal history of nicotine dependence; Z72.89 Other problems related to lifestyle; Z99.81 Dependence on supplemental oxygen; Z79.01 Long term (current) use of anticoagulants; Z79.82 Long term (current) use of aspirin; Z79.899 Other long term (current) drug therapy; Z98.890 Other specified postprocedural states; Z95.1 Presence of aortocoronary bypass graft | CPT/HCPCS: 49083; A4215 ==

== ENCOUNTER → 2021-04-07 | Outpatient (CLI) | payer OTHER ==
[2021-04-07 10:44] LABS: INR 1.15 (0.85-1.15); PROTHROMBIN TIME 12.4 SEC (9.6-11.6)
== END | disposition home or self-care (01) ==
LOC: RAH 09:48
PROVIDERS: ATTEND Nurse Practitioner Family
DX: R06.02 Shortness of breath (principal); E87.70 Fluid overload, unspecified
CPT/HCPCS: 32555; 36415; 71045; 85610; A4215

== ENCOUNTER → 2021-04-14 | Outpatient (CLI) | payer OTHER | END | disposition home or self-care (01) | LOC: RAH 10:03 | PROVIDERS: ATTEND Nurse Practitioner Family | DX: R18.8 Other ascites (principal) | CPT/HCPCS: 49083; A4215 ==

== ENCOUNTER → 2021-04-21 | Outpatient (CLI) | payer OTHER | END | disposition home or self-care (01) | LOC: RAH 09:54 | PROVIDERS: ATTEND Nurse Practitioner Family | DX: J90 Pleural effusion, not elsewhere classified (principal); I13.0 Hypertensive heart and chronic kidney disease with heart failure and stage 1 through stage 4 chronic kidney disease, or unspecified chronic kidney disease; E11.22 Type 2 diabetes mellitus with diabetic chronic kidney disease; I50.22 Chronic systolic (congestive) heart failure; N18.4 Chronic kidney disease, stage 4 (severe); D63.8 Anemia in other chronic diseases classified elsewhere; I48.91 Unspecified atrial fibrillation; J44.9 Chronic obstructive pulmonary disease, unspecified; E78.5 Hyperlipidemia, unspecified; I25.10 Atherosclerotic heart disease of native coronary artery without angina pectoris; R63.4 Abnormal weight loss; K21.9 Gastro-esophageal reflux disease without esophagitis; Z99.81 Dependence on supplemental oxygen; Z95.5 Presence of coronary angioplasty implant and graft; Z86.73 Personal history of transient ischemic attack (TIA), and cerebral infarction without residual deficits; Z79.84 Long term (current) use of oral hypoglycemic drugs; Z79.890 Hormone replacement therapy; Z82.49 Family history of ischemic heart disease and other diseases of the circulatory system; Z87.891 Personal history of nicotine dependence; Z72.89 Other problems related to lifestyle | CPT/HCPCS: 32555; 71045; A4215 ==

== ENCOUNTER → 2021-04-27 | Outpatient (CLI) | payer OTHER | END | disposition home or self-care (01) | LOC: RAH 09:29 | PROVIDERS: ATTEND Nurse Practitioner Family | DX: R18.8 Other ascites (principal); I13.0 Hypertensive heart and chronic kidney disease with heart failure and stage 1 through stage 4 chronic kidney disease, or unspecified chronic kidney disease; E11.22 Type 2 diabetes mellitus with diabetic chronic kidney disease; I50.22 Chronic systolic (congestive) heart failure; N18.4 Chronic kidney disease, stage 4 (severe); D63.8 Anemia in other chronic diseases classified elsewhere; I48.91 Unspecified atrial fibrillation; J44.9 Chronic obstructive pulmonary disease, unspecified; E78.5 Hyperlipidemia, unspecified; I25.10 Atherosclerotic heart disease of native coronary artery without angina pectoris; R63.4 Abnormal weight loss; K21.9 Gastro-esophageal reflux disease without esophagitis; Z99.81 Dependence on supplemental oxygen; Z95.5 Presence of coronary angioplasty implant and graft; Z86.73 Personal history of transient ischemic attack (TIA), and cerebral infarction without residual deficits; Z79.84 Long term (current) use of oral hypoglycemic drugs; Z98.890 Other specified postprocedural states; Z87.891 Personal history of nicotine dependence; Z82.49 Family history of ischemic heart disease and other diseases of the circulatory system; Z72.89 Other problems related to lifestyle | CPT/HCPCS: 49083; A4215 ==

== ENCOUNTER → 2021-05-05 | Outpatient (CLI) | payer OTHER | END | disposition home or self-care (01) | LOC: RAH 09:13 | PROVIDERS: ATTEND Nurse Practitioner Family | DX: J90 Pleural effusion, not elsewhere classified (principal); I13.0 Hypertensive heart and chronic kidney disease with heart failure and stage 1 through stage 4 chronic kidney disease, or unspecified chronic kidney disease; E11.22 Type 2 diabetes mellitus with diabetic chronic kidney disease; I50.22 Chronic systolic (congestive) heart failure; N18.4 Chronic kidney disease, stage 4 (severe); D63.8 Anemia in other chronic diseases classified elsewhere; I48.91 Unspecified atrial fibrillation; J44.9 Chronic obstructive pulmonary disease, unspecified; E78.5 Hyperlipidemia, unspecified; I25.10 Atherosclerotic heart disease of native coronary artery without angina pectoris; R63.4 Abnormal weight loss; K21.9 Gastro-esophageal reflux disease without esophagitis; Z99.81 Dependence on supplemental oxygen; Z95.5 Presence of coronary angioplasty implant and graft; Z86.73 Personal history of transient ischemic attack (TIA), and cerebral infarction without residual deficits; Z79.84 Long term (current) use of oral hypoglycemic drugs; Z79.899 Other long term (current) drug therapy; Z98.890 Other specified postprocedural states; Z87.891 Personal history of nicotine dependence; Z72.89 Other problems related to lifestyle; Z82.49 Family history of ischemic heart disease and other diseases of the circulatory system | CPT/HCPCS: 32555; 71045; A4215 ==

== ENCOUNTER → 2021-05-12 | Outpatient (CLI) | payer OTHER ==
[2021-05-12 10:16] LABS: INR 1.18 (0.85-1.15); PROTHROMBIN TIME 12.7 SEC (9.6-11.6)
== END | disposition home or self-care (01) ==
LOC: RAH 08:56
PROVIDERS: ATTEND Nurse Practitioner Family
DX: R18.8 Other ascites (principal); I13.0 Hypertensive heart and chronic kidney disease with heart failure and stage 1 through stage 4 chronic kidney disease, or unspecified chronic kidney disease; I25.10 Atherosclerotic heart disease of native coronary artery without angina pectoris; I48.91 Unspecified atrial fibrillation; E11.22 Type 2 diabetes mellitus with diabetic chronic kidney disease; I50.9 Heart failure, unspecified; N18.30 Chronic kidney disease, stage 3 unspecified; K21.9 Gastro-esophageal reflux disease without esophagitis; E78.5 Hyperlipidemia, unspecified; Z86.73 Personal history of transient ischemic attack (TIA), and cerebral infarction without residual deficits; Z95.0 Presence of cardiac pacemaker; Z88.8 Allergy status to other drugs, medicaments and biological substances; Z79.899 Other long term (current) drug therapy
CPT/HCPCS: 36415; 49083; 85610; A4215

== ENCOUNTER → 2021-05-18 | Outpatient (CLI) | payer OTHER ==
[~2021-05-18] MED LIST changes: +LISI2.5T13 PO; -LISI2.5T2 PO
== END | disposition home or self-care (01) ==
LOC: SHCH 08:21
PROVIDERS: ATTEND Internal Medicine Cardiovascular Disease
DX: I08.8 Other rheumatic multiple valve diseases (principal); J90 Pleural effusion, not elsewhere classified; I25.10 Atherosclerotic heart disease of native coronary artery without angina pectoris
CPT/HCPCS: 93306; 93356

== ENCOUNTER → 2021-05-19 | Outpatient (CLI) | payer OTHER ==
[~2021-05-19] MED LIST changes: -LISI2.5T13 PO; +LISI2.5T2 PO; +SODIUM BICARB 50MEQ 50ML VIAL 50 ML ONE
== END | disposition home or self-care (01) ==
LOC: RAH 09:04
PROVIDERS: ATTEND Nurse Practitioner Family
DX: J90 Pleural effusion, not elsewhere classified (principal); R18.8 Other ascites; I13.0 Hypertensive heart and chronic kidney disease with heart failure and stage 1 through stage 4 chronic kidney disease, or unspecified chronic kidney disease; I25.10 Atherosclerotic heart disease of native coronary artery without angina pectoris; E11.22 Type 2 diabetes mellitus with diabetic chronic kidney disease; I48.91 Unspecified atrial fibrillation; I50.9 Heart failure, unspecified; N18.30 Chronic kidney disease, stage 3 unspecified; K21.9 Gastro-esophageal reflux disease without esophagitis; E78.5 Hyperlipidemia, unspecified; Z86.73 Personal history of transient ischemic attack (TIA), and cerebral infarction without residual deficits; Z95.0 Presence of cardiac pacemaker; Z88.8 Allergy status to other drugs, medicaments and biological substances; Z79.899 Other long term (current) drug therapy
CPT/HCPCS: 32555; 71045; A4215; J3490

== ENCOUNTER → 2021-05-26 | Outpatient (CLI) | payer OTHER ==
[~2021-05-26] MED LIST changes: -SODIUM BICARB 50MEQ 50ML VIAL 50 ML ONE
[2021-05-26 14:04] LABS: APPEARANCE BODY FLUID SLIGHTLY CLOUDY (CLEAR); BODY FLUID WBC 224 /cu. mm.; COLOR,BODY FLUID YELLOW (LT YELLOW); SPECIMENTYPE,BODY FLUID ASCITES; TOTAL VOLUME,BODY FLUID 2500 mL
[2021-05-26 14:05] LABS: BODY FLUID RBC 850 /cu. mm.
[2021-05-26 14:09] LABS: BF LYMPHOCYTE 44 %; BF MONOCYTE 24 %
== END | disposition home or self-care (01) ==
LOC: RAH 08:59
PROVIDERS: ATTEND Nurse Practitioner Family
DX: R18.8 Other ascites (principal); I50.23 Acute on chronic systolic (congestive) heart failure; D63.1 Anemia in chronic kidney disease; I48.20 Chronic atrial fibrillation, unspecified; I25.10 Atherosclerotic heart disease of native coronary artery without angina pectoris; J44.9 Chronic obstructive pulmonary disease, unspecified; K21.00 Gastro-esophageal reflux disease with esophagitis, without bleeding; H90.3 Sensorineural hearing loss, bilateral; N18.30 Chronic kidney disease, stage 3 unspecified; Z99.81 Dependence on supplemental oxygen; Z95.5 Presence of coronary angioplasty implant and graft
CPT/HCPCS: 49083; 87071; 87205; 89051; C1729

== ENCOUNTER → 2021-06-02 | Outpatient (CLI) | payer OTHER | END | disposition home or self-care (01) | LOC: RAH 09:12 | PROVIDERS: ATTEND Nurse Practitioner Family | DX: J90 Pleural effusion, not elsewhere classified (principal); I50.23 Acute on chronic systolic (congestive) heart failure; I48.20 Chronic atrial fibrillation, unspecified; N18.30 Chronic kidney disease, stage 3 unspecified; I25.10 Atherosclerotic heart disease of native coronary artery without angina pectoris; J44.9 Chronic obstructive pulmonary disease, unspecified; K21.00 Gastro-esophageal reflux disease with esophagitis, without bleeding; H90.3 Sensorineural hearing loss, bilateral; D63.1 Anemia in chronic kidney disease; Z99.81 Dependence on supplemental oxygen; Z95.5 Presence of coronary angioplasty implant and graft; Z98.890 Other specified postprocedural states | CPT/HCPCS: 32555; 71045; C1729 ==

== ENCOUNTER → 2021-06-08 | Outpatient (CLI) | payer OTHER | END | disposition home or self-care (01) | LOC: RAH 09:34 | PROVIDERS: ATTEND Nurse Practitioner Family | DX: R18.8 Other ascites (principal); I25.10 Atherosclerotic heart disease of native coronary artery without angina pectoris; I48.91 Unspecified atrial fibrillation; E11.43 Type 2 diabetes mellitus with diabetic autonomic (poly)neuropathy; E11.22 Type 2 diabetes mellitus with diabetic chronic kidney disease; I12.9 Hypertensive chronic kidney disease with stage 1 through stage 4 chronic kidney disease, or unspecified chronic kidney disease; N18.4 Chronic kidney disease, stage 4 (severe); I50.9 Heart failure, unspecified; E78.5 Hyperlipidemia, unspecified; K31.84 Gastroparesis; K21.9 Gastro-esophageal reflux disease without esophagitis; Z86.73 Personal history of transient ischemic attack (TIA), and cerebral infarction without residual deficits; J44.9 Chronic obstructive pulmonary disease, unspecified; Z95.5 Presence of coronary angioplasty implant and graft; Z87.891 Personal history of nicotine dependence; Z72.89 Other problems related to lifestyle; Z79.01 Long term (current) use of anticoagulants; Z98.890 Other specified postprocedural states; Z99.81 Dependence on supplemental oxygen | CPT/HCPCS: 49083; C1729 ==

== ENCOUNTER → 2021-06-16 | Outpatient (CLI) | payer OTHER ==
[~2021-06-16] MED LIST changes: +LISI2.5T13 PO; -LISI2.5T2 PO
[2021-06-16 10:15] LABS: INR 1.21 (0.85-1.15)
== END | disposition home or self-care (01) ==
LOC: RAH 09:18
PROVIDERS: ATTEND Nurse Practitioner Family
DX: J90 Pleural effusion, not elsewhere classified (principal); I25.10 Atherosclerotic heart disease of native coronary artery without angina pectoris; I48.91 Unspecified atrial fibrillation; E11.43 Type 2 diabetes mellitus with diabetic autonomic (poly)neuropathy; E11.22 Type 2 diabetes mellitus with diabetic chronic kidney disease; I13.0 Hypertensive heart and chronic kidney disease with heart failure and stage 1 through stage 4 chronic kidney disease, or unspecified chronic kidney disease; N18.4 Chronic kidney disease, stage 4 (severe); I50.9 Heart failure, unspecified; E78.5 Hyperlipidemia, unspecified; J44.9 Chronic obstructive pulmonary disease, unspecified; K31.84 Gastroparesis; K21.9 Gastro-esophageal reflux disease without esophagitis; Z86.73 Personal history of transient ischemic attack (TIA), and cerebral infarction without residual deficits; Z95.5 Presence of coronary angioplasty implant and graft; Z79.01 Long term (current) use of anticoagulants; Z87.891 Personal history of nicotine dependence; Z72.89 Other problems related to lifestyle; Z79.899 Other long term (current) drug therapy; Z99.81 Dependence on supplemental oxygen
CPT/HCPCS: 32555; 36415; 71045; 85610; 85730; C1729

== ENCOUNTER → 2021-07-28 | Outpatient (CLI) | payer OTHER | END | disposition home or self-care (01) | LOC: RAH 09:27 | PROVIDERS: ATTEND Nurse Practitioner Family | DX: I50.23 Acute on chronic systolic (congestive) heart failure (principal); R18.8 Other ascites; J90 Pleural effusion, not elsewhere classified | CPT/HCPCS: 32555; 71045; C1729 ==

== ENCOUNTER → 2021-08-18 | Outpatient (CLI) | payer OTHER | END | disposition home or self-care (01) | LOC: RAH 09:09 | PROVIDERS: ATTEND Nurse Practitioner Family | DX: R18.8 Other ascites (principal); I13.0 Hypertensive heart and chronic kidney disease with heart failure and stage 1 through stage 4 chronic kidney disease, or unspecified chronic kidney disease; E11.22 Type 2 diabetes mellitus with diabetic chronic kidney disease; I50.23 Acute on chronic systolic (congestive) heart failure; N18.4 Chronic kidney disease, stage 4 (severe); I48.91 Unspecified atrial fibrillation; J44.9 Chronic obstructive pulmonary disease, unspecified; K21.9 Gastro-esophageal reflux disease without esophagitis; E11.43 Type 2 diabetes mellitus with diabetic autonomic (poly)neuropathy; E78.5 Hyperlipidemia, unspecified; Z99.81 Dependence on supplemental oxygen; Z98.890 Other specified postprocedural states; Z87.891 Personal history of nicotine dependence; Z79.01 Long term (current) use of anticoagulants | CPT/HCPCS: 49083; C1729 ==

== ENCOUNTER 2021-08-31 08:26 | Day surgery (SDC) | payer OTHER ==
[2021-08-31] MEDS ORDERED: IODIXANOL 320 MG/ML 100 ML VIAL ONE (09:02)
[2021-08-31] MEDS ORDERED: LIDOCAINE HCL 1% MDV 50ML VIAL ONE (09:02)
[2021-08-31 09:32] LABS: BASOPHILS % (AUTO) 0.7 % (0.0-5.0); EOSINOPHILS % (AUTO) 2.1 % (0.0-8.0); HEMATOCRIT 25.6 % (42-54); MEAN CORPUSCULAR HEMOGLOBIN 28.9 pg (27.0-33.0); MEAN CORPUSCULAR HGB CONC 31.3 g/dL (32.0-36.0); MEAN CORPUSCULAR VOLUME 92.4 fL (79-99); MONOCYTES % (AUTO) 11.3 % (3.0-13.0); NEUTROPHILS % (AUTO) 72.3 % (40.0-77.0); PLATELET COUNT (AUTO) 194 K/uL (130-400); RED BLOOD CELL COUNT(AUTO) 2.77 MIL/uL (4.50-6.20); RED CELL DISTRIBUTION WIDTH 16.7 % (11.0-15.5); WHITE BLOOD COUNT (AUTO) 7.2 K/uL (4.8-10.8)
[2021-08-31 09:42] LABS: INR 1.19 (0.85-1.15); PROTHROMBIN TIME 12.8 SEC (9.6-11.6)
[2021-08-31 09:44] LABS: PARTIAL THROMBOPLASTIN TIME 27.5 SEC (26.3-35.5)
[2021-08-31 10:20] LABS: POTASSIUM 4.4 mmol/L (3.5-5.1)
[2021-08-31] MEDS ORDERED: 0.9%NACL 1000ML 1,000 ML IV ONE (10:39)
[2021-08-31] MEDS ORDERED: ACETAMINOPHEN WITH CODEINE 1 TAB TAB ONE (12:25)
== END 2021-08-31 12:50 | disposition home or self-care (01) ==
LOC: CLH 08:26
PROVIDERS: ATTEND Nurse Practitioner Family
DX: J90 Pleural effusion, not elsewhere classified (principal); R18.8 Other ascites; E11.22 Type 2 diabetes mellitus with diabetic chronic kidney disease; I13.0 Hypertensive heart and chronic kidney disease with heart failure and stage 1 through stage 4 chronic kidney disease, or unspecified chronic kidney disease; N18.30 Chronic kidney disease, stage 3 unspecified; I50.9 Heart failure, unspecified; Z79.01 Long term (current) use of anticoagulants; I25.10 Atherosclerotic heart disease of native coronary artery without angina pectoris; I48.91 Unspecified atrial fibrillation; D63.1 Anemia in chronic kidney disease; Z79.82 Long term (current) use of aspirin
CPT/HCPCS: 32550; 36415; 49418; 75989; 76942; 80048; 85025; 85610; 85730; A4215; A4216; A4221; A4222; A4223 ×3; A4606; A4663; A7048 ×2; J1644; J3490; J7030; Q9967

== ENCOUNTER 2021-09-22 17:48 | Emergency (ER) | payer OTHER ==
[~2021-09-22] VITALS: Ht 175.3 cm; Wt 68.0 kg
[2021-09-22 19:55] LABS: BASOPHILS % (AUTO) 0.7 % (0.0-5.0); EOSINOPHILS % (AUTO) 1.2 % (0.0-8.0); HEMATOCRIT 26.2 % (42-54); LYMPHOCYTES % (AUTO) 9.1 % (21.0-51.0); MEAN CORPUSCULAR HEMOGLOBIN 28.1 pg (27.0-33.0); MEAN CORPUSCULAR HGB CONC 31.3 g/dL (32.0-36.0); MEAN CORPUSCULAR VOLUME 89.7 fL (79-99); MONOCYTES % (AUTO) 10.9 % (3.0-13.0); NEUTROPHILS % (AUTO) 77.7 % (40.0-77.0); PLATELET COUNT (AUTO) 171 K/uL (130-400); RED BLOOD CELL COUNT(AUTO) 2.92 MIL/uL (4.50-6.20); RED CELL DISTRIBUTION WIDTH 16.8 % (11.0-15.5)
[2021-09-22 20:02] LABS: INR 1.15 (0.85-1.15); PROTHROMBIN TIME 12.4 SEC (9.6-11.6)
[2021-09-22 20:03] LABS: CREATININE 1.8 mg/dL (0.5-1.5); POTASSIUM 3.9 mmol/L (3.5-5.1)
[2021-09-22 20:04] LABS: PARTIAL THROMBOPLASTIN TIME 27.6 SEC (26.3-35.5)
[2021-09-22 20:08] LABS: ALBUMIN 2.3 g/dL (3.5-5.0); BILIRUBIN,TOTAL 0.7 mg/dL (0.2-1.0); TOTAL PROTEIN, SERUM 7.5 g/dL (6.0-8.3)
[2021-09-22] MEDS ORDERED: HYDROCODONE/ACETAMINOPHEN 10/325 MG TAB ONE (20:10)
[2021-09-22] MEDS ORDERED: ONDANSETRON 4MG INJ ONE (20:14)
[2021-09-22] MEDS ORDERED: HYDROCODONE/ACETAMINOPHEN 10/325 MG TAB PO ONE (20:30)
[2021-09-22] MEDS ORDERED: ONDANSETRON ODT 4MG TAB SL ONE (20:30)
[2021-09-22] MEDS ORDERED: HYDROMORPHONE 1 MG INJ IVP ONE (21:00)
[2021-09-22 21:45] VITALS: BP 118/41
== END 2021-09-22 21:55 | disposition home or self-care (01) ==
LOC: EDH 17:48
DX: R18.8 Other ascites (principal); K74.60 Unspecified cirrhosis of liver; I11.0 Hypertensive heart disease with heart failure; I50.9 Heart failure, unspecified; E78.00 Pure hypercholesterolemia, unspecified; E11.9 Type 2 diabetes mellitus without complications; Z79.51 Long term (current) use of inhaled steroids; Z79.84 Long term (current) use of oral hypoglycemic drugs; Z79.899 Other long term (current) drug therapy; Z88.1 Allergy status to other antibiotic agents; Z88.2 Allergy status to sulfonamides; Z88.8 Allergy status to other drugs, medicaments and biological substances
CPT/HCPCS: 32554; 36415; 71045; 76705; 80053; 85025; 85610; 85730; 93005; 96374; 96375; 99285; J1170; J2405